=== PATIENT | female | born 1970 | race Caucasian/White ===

== ENCOUNTER 2017-02-28 13:05 | Observation (INO) ==
--- NOTE | 2017-02-28 13:39 | Emergency Department Note ---
Disposition Clinical Impression: Urinary tract infection, Diabetes mellitus, Uncontrolled hypertension, Obesity , Headache, Abnormal EKG Disposition: Admitted As Inpatient Condition: Good Instructions: Hypertension (ED) Referrals: Jessica Garces MD [Primary Care Provider] - [facility] [Outside] Forms: ED Satisfaction Letter General Adult HPI - General Chief complaint: ED Urogenital-Female Stated complaint: hypertension/ poss UTI Time Seen by Provider: 02/28/17 13:38 Source: patient Limitations: no limitations - History of Present Illness HPI Narrative: 47-year-old female reports emergency department complaining of urinary problems. She has a suprapubic catheter in situ. She reports her urine is smelly and she thinks she may have a UTI. She has had no significant flank pain no fever. She is diabetic. Her blood sugar has been between 180 and 220 per her report. There is no history of vomiting diarrhea she describes some suprapubic discomfort. There is no history of chest pain or shortness of breath. The patient is also concerned because her blood pressure readings at home have been elevated. She has a slight headache. There is no history of neck stiffness rash or fever unilateral arm weakness or numbness no slurred speech or confusion. No history of difficulty walking talking hearing seeing or speaking. The patient reports she has been septic before and she wants to be checked for UTI. Pain Scale: 4 - Related Data Home Medications Medication Instructions Recorded Confirmed Albuterol Sulfate [Albuterol 2 puff IH Q4HR PRN 04/25/15 02/28/17 Inhaler] Citalopram [CeleXA] 20 mg PO QPM 04/25/15 02/28/17 Furosemide [Lasix] 20 mg PO QAM 04/25/15 02/28/17 Levothyroxine [Synthroid] 175 mcg PO QAM 04/25/15 02/28/17 Potassium Chloride 10 meq PO QID 04/25/15 02/28/17 Amitriptyline [Elavil] 25 mg PO HS 02/07/16 02/28/17 CloNIDine Patch [Catapres-Tts] 0.2 mg TD QWEEK 02/07/16 02/28/17 Albuterol Neb [Proventil Neb] 2.5 mg IH TID PRN 02/28/17 02/28/17 Gabapentin [Neurontin] 100 mg PO HS 02/28/17 02/28/17 SitaGLIPtin [Januvia] 25 mg PO DAILY PRN 02/28/17 02/28/17 Triamcinolone Acet 0.1% CRM 1 appl TP BID 02/28/17 02/28/17 [Kenalog] Water for Irrigation (sterile) 1,000 ml IR AD 02/28/17 02/28/17 [Water for irrigation (sterile)] Allergies Allergy/AdvReac Type Severity Reaction Status Date / Time cephalexin [From Keflex] Allergy Hives Verified 02/16/17 22:21 omeprazole AdvReac Nausea Verified 02/16/17 22:21 All systems ED: reviewed and negative except as stated. 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 Absent: scleral icterus, conjunctival injection, miosis, mydriasis - ENT ENT exam: normal exam, normal oropharynx, mucous membranes moist, TM's normal bilaterally, normal external ear exam - Neck Neck exam: Present: normal inspection, full ROM, trachea midline. Absent: meningismus - Chest Chest inspection: Present: symmetric chest wall rise. Absent: tenderness - Respiratory Respiratory exam: Present: normal lung sounds bilaterally. Absent: respiratory distress, wheezes, stridor, accessory muscle use, prolonged expiratory phase - Cardiovascular Cardiovascular exam: Present: regular rate, normal rhythm, normal heart sounds - Abdominal Exam Abdominal exam: Present: soft, Non-Tender, normal bowel sounds, other ( Suprapubic catheter in place.). Absent: tenderness, distention, guarding, rebound, rigidity - Extremities Exam Extremities exam: Present: normal inspection, full ROM, normal capillary refill. Absent: tenderness, pedal edema, joint swelling, calf tenderness - Expanded Lower Extremity Exam Lower leg exam: Absent: Homans' sign Neurovascular/Tendon exam: Present: normal capillary refill. Absent: motor deficit, sensory deficit, tendon deficit, extremity cold to touch, pallor - Back Exam Back exam: Present: normal inspection, full ROM. Absent: tenderness, CVA tenderness (R), CVA tenderness (L), vertebral tenderness - Neurological Exam Neurological exam: Present: alert, oriented X3, CN II-XII intact. Absent: motor sensory deficit - Psychiatric Psychiatric exam: Present: normal affect, normal mood - Skin Skin exam: Present: warm, dry, intact, normal color. Absent: rash, cyanosis, diaphoresis, erythema, pallor, mottled Course Vital Signs Temperature 97.7 F 02/28/17 13:07 Pulse Rate 81 02/28/17 13:07 Respiratory Rate 16 02/28/17 13:07 Blood Pressure 161/101 02/28/17 13:07 O2 Sat by Pulse Oximetry 98 02/28/17 13:07 Temperature 97.7 F 02/28/17 13:07 Pulse Rate 78 02/28/17 17:00 Respiratory Rate 16 02/28/17 17:00 Blood Pressure 192/111 02/28/17 17:00 O2 Sat by Pulse Oximetry 98 02/28/17 17:00 Oxygen Delivery Oxygen Delivery Room Air Medical Decision Making - MDM Narrative Medical decision making narrative: The patient's urinalysis shows changes consistent with urinary tract infection. Cipro was given the ED. The patient's blood pressure was somewhat elevated, Percocet and clonidine were given in the ED, recheck blood pressure with a diastolic pressure remained significantly elevated up to 122. The patient takes antihypertensive medication at home and is currently wearing a clonidine patch. The patient does complain of a mild headache, is no history of rapid onset headache with rapid peak intensity. Her neurologic exam is benign. She reports he gets headaches when her blood pressure is elevated. We monitored the patient emergency department and did not seem to have significant improvement in her blood pressure. The patient is on Lasix, chlorthalidone, as well as clonidine. The patient does take amitriptyline which may interfere with clonidine's action. Based on her persistently elevated blood pressures already on 3 antihypertensive agents, with no response to additional clonidine, of note particularly her diastolic BP in the 120s, I thought it would be appropriate to admit the patient for further evaluation and management. The patient is currently stable. IV assess was established. Further antihypertensive therapy will be initiated. I discussed the case with the hospitalist on-call who has accepted the patient to their care. EKG sinus rhythm with LVH, no acute ST changes, CT head negative. Troponin is pending. The patient is not experiencing chest pain. - Lab Data Lab results reviewed: Yes I reviewed the patient's lab results. Result diagrams: 02/28/17 13:50 02/28/17 13:50 Lab Results 02/28/17 02/28/17 02/28/17 Range/Units 13:41 13:50 13:50 WBC 9.7 (4.3-11.1) K/mcL RBC 5.05 H (3.82-4.97) M/mcL Hgb 12.3 (11.5-15.4) g/dL Hct 40.1 (35.3-44.9) % MCV 79.4 L (83.0-100.0) fL MCH 24.4 L (28.0-33.3) pg MCHC 30.7 L (31.6-35.5) g/dL RDW 16.5 H (11.5-14.5) % Plt Count 357 (140-400) K/mcL MPV 10.8 (9.4-12.4) fL Immature Gran % 0.3 (0-4) % Seg Neutrophils % 64.1 % Lymphocytes % 27.0 % Monocytes % 5.8 % Eosinophils % 2.3 % Basophils % 0.5 % Neutrophils # 6.2 (1.6-8.9) K/mcL Lymphocytes # 2.6 (0.6-4.6) K/mcL Monocytes # 0.6 (0.0-1.3) K/mcL Eosinophils # 0.2 (0.0-0.6) K/mcL Basophils # 0.1 (0.0-0.2) K/mcL Sodium 140 (136-145) mEq/L Potassium 3.9 (3.5-4.5) mEq/L Chloride 110 H (98-109) mEq/L Carbon Dioxide 21 (19-29) mEq/L BUN 18 (7-20) mg/dL Creatinine 0.78 (0.57-1.11) mg/dL Est GFR ( Amer) > 60 (> 60) Est GFR (Non-Af Amer) > 60 (> 60) BUN/Creatinine Ratio 23 (6-26) Glucose 131 H (70-99) mg/dL Calculated Osmolality 294 (280-300) Lactic Acid (0.5-2.2) mmol/L Calcium 9.7 (8.6-10.8) mg/dL Total Bilirubin 0.3 (0.2-1.2) mg/dL Direct Bilirubin 0.1 (0.0-0.5) mg/dL Indirect Bilirubin 0.2 (0.0-1.2) mg/dL AST 18 (5-34) Units/L ALT 17 (0-55) Units/L Alkaline Phosphatase 136 H (38-126) Units/L C-Reactive Protein 25 H (Less than 5) mg/L Serum Total Protein 8.6 H (6.0-8.3) g/dL Albumin 3.4 L (3.5-5.0) g/dL Globulin 5.2 H (2.4-3.5) g/dL Albumin/Globulin Ratio 0.7 L (1.1-2.2) Urine Color Yellow (Yellow) Urine Clarity Cloudy A (Clear) Urine pH 6.5 (5.0-8.0) pH Units Ur Specific [place] 1.016 (1.010-1.025) Urine Protein >=300 H (Neg-Trace) mg/dL Urine Glucose (UA) Normal (Normal) mg/dL Urine Ketones Negative (Negative) mg/dL Urine Blood Large H (Negative) Urine Nitrite Negative (Negative) Urine Bilirubin Negative (Negative) Urine Urobilinogen Normal (Normal) mg/dL Ur Leukocyte Esterase Moderate H (Negative) Urine Microscopic RBC TNTC H (0-3) per hpf Urine Microscopic WBC 50-100 H (0-3) per hpf Ur Squamous Epith Cells Many H (None-Few) per lpf Urine Bacteria Few (None-Few) per hpf Hyaline Casts None Seen (None-Few) per lpf Ur Culture Indicated? YES A (NO) 02/28/17 Range/Units 13:50 WBC (4.3-11.1) K/mcL RBC (3.82-4.97) M/mcL Hgb (11.5-15.4) g/dL Hct (35.3-44.9) % MCV (83.0-100.0) fL MCH (28.0-33.3) pg MCHC (31.6-35.5) g/dL RDW (11.5-14.5) % Plt Count (140-400) K/mcL MPV (9.4-12.4) fL Immature Gran % (0-4) % Seg Neutrophils % % Lymphocytes % % Monocytes % % Eosinophils % % Basophils % % Neutrophils # (1.6-8.9) K/mcL Lymphocytes # (0.6-4.6) K/mcL Monocytes # (0.0-1.3) K/mcL Eosinophils # (0.0-0.6) K/mcL Basophils # (0.0-0.2) K/mcL Sodium (136-145) mEq/L Potassium (3.5-4.5) mEq/L Chloride (98-109) mEq/L Carbon Dioxide (19-29) mEq/L BUN (7-20) mg/dL Creatinine (0.57-1.11) mg/dL Est GFR ( Amer) (> 60) Est GFR (Non-Af Amer) (> 60) BUN/Creatinine Ratio (6-26) Glucose (70-99) mg/dL Calculated Osmolality (280-300) Lactic Acid 1.4 (0.5-2.2) mmol/L Calcium (8.6-10.8) mg/dL Total Bilirubin (0.2-1.2) mg/dL Direct Bilirubin (0.0-0.5) mg/dL Indirect Bilirubin (0.0-1.2) mg/dL AST (5-34) Units/L ALT (0-55) Units/L Alkaline Phosphatase (38-126) Units/L C-Reactive Protein (Less than 5) mg/L Serum Total Protein (6.0-8.3) g/dL Albumin (3.5-5.0) g/dL Globulin (2.4-3.5) g/dL Albumin/Globulin Ratio (1.1-2.2) Urine Color (Yellow) Urine Clarity (Clear) Urine pH (5.0-8.0) pH Units Ur Specific [place] (1.010-1.025) Urine Protein (Neg-Trace) mg/dL Urine Glucose (UA) (Normal) mg/dL Urine Ketones (Negative) mg/dL Urine Blood (Negative) Urine Nitrite (Negative) Urine Bilirubin (Negative) Urine Urobilinogen (Normal) mg/dL Ur Leukocyte Esterase (Negative) Urine Microscopic RBC (0-3) per hpf Urine Microscopic WBC (0-3) per hpf Ur Squamous Epith Cells (None-Few) per lpf Urine Bacteria (None-Few) per hpf Hyaline Casts (None-Few) per lpf Ur Culture Indicated? (NO)
[2017-02-28 13:50] LABS: Bilirubin,Urine Negative (Negative); Blood,Urine Large (Negative); Clarity,Urine Cloudy (Clear); Color,Urine Yellow (Yellow); Glucose,Urine (UA) Normal (Normal); Ketones,Urine Negative (Negative); Leukocyte Esterase,Urine Moderate (Negative); Nitrite,Urine Negative (Negative); PH,Urine 6.5 pH Units (5.0-8.0); Protein,Urine >=300 mg/dL (Neg-Trace); Specific Gravity,Urine 1.016 (1.010-1.025); Urobilinogen,Urine Normal (Normal)
[2017-02-28 13:52] LABS: Bacteria,Urine Few per hpf (None-Few); Hyaline Casts,Urine None Seen per lpf (None-Few); RBC,Urine TNTC per hpf (0-3); Squamous Epithelial Cell,Urine Many per lpf (None-Few); WBC,Urine 50-100 per hpf (0-3)
[2017-02-28 13:59] LABS: Basophils # 0.1 K/mcL (0.0-0.2); Basophils % 0.5 %; Eosinophils # 0.2 K/mcL (0.0-0.6); Eosinophils % 2.3 %; Hematocrit 40.1 % (35.3-44.9); Hemoglobin 12.3 g/dL (11.5-15.4); Immature Granulocytes % 0.3 % (0-4); Lymphocytes # 2.6 K/mcL (0.6-4.6); Mean Corpuscular HGB Conc 30.7 g/dL (31.6-35.5); Mean Corpuscular Hemoglobin 24.4 pg (28.0-33.3); Mean Corpuscular Volume 79.4 fL (83.0-100.0); Mean Platelet Volume 10.8 fL (9.4-12.4); Monocytes # 0.6 K/mcL (0.0-1.3); Monocytes % 5.8 %; Neutrophils # 6.2 K/mcL (1.6-8.9); Platelet Count 357 K/mcL (140-400); Red Blood Count 5.05 M/mcL (3.82-4.97); Red Cell Distribution Width 16.5 % (11.5-14.5); Segmented Neutrophils % 64.1 %
[2017-02-28 14:13] LABS: Alanine Aminotransferase 17 Units/L (0-55); Albumin 3.4 g/dL (3.5-5.0); Albumin/Globulin Ratio 0.7 (1.1-2.2); Alkaline Phosphatase 136 Units/L (38-126); Aspartate Amino Transferase 18 Units/L (5-34); BUN/Creatinine Ratio 23 (6-26); Bilirubin,Direct 0.1 mg/dL (0.0-0.5); Bilirubin,Indirect 0.2 mg/dL (0.0-1.2); Bilirubin,Total 0.3 mg/dL (0.2-1.2); Blood Urea Nitrogen 18 mg/dL (7-20); Calcium 9.7 mg/dL (8.6-10.8); Carbon Dioxide 21 mEq/L (19-29); Chloride 110 mEq/L (98-109); Globulin 5.2 g/dL (2.4-3.5); Glucose 131 mg/dL (70-99); Osmolality,Calculated 294 (280-300); Potassium 3.9 mEq/L (3.5-4.5); Sodium 140 mEq/L (136-145); Total Protein 8.6 g/dL (6.0-8.3); eGFR For African Americans > 60 (> 60); eGFR For Non-African Americans > 60 (> 60)
[2017-02-28 14:49] LABS: C-Reactive Protein 25 mg/L (Less than 5)
[2017-02-28] MEDS ORDERED: *HR* OxyCODONE/APAP 5/325 TABLET PO ONE (15:12)
[2017-02-28] MEDS ORDERED: cloNIDine HCl 0.1 MG TABLET PO ONE (15:13)
[2017-02-28] MEDS ORDERED: *HR* SitaGLIPtin 25 MG TABLET PO PRN (20:27)
[2017-02-28] MEDS ORDERED: Ketorolac 30 MG/ML VIAL IVP PRN (20:29)
[2017-02-28] MEDS ORDERED: Acetaminophen 325 MG TABLET PO PRN (20:29)
[2017-02-28] MEDS ORDERED: *HR* Morphine 2 MG/ML SYRINGE IVP PRN (20:29)
[2017-02-28] MEDS ORDERED: Ondansetron 4 MG/2 ML VIAL IVP PRN (20:29)
[2017-02-28] MEDS ORDERED: Naloxone 0.4 MG/ML INJ IVP PRN (20:29)
[2017-02-28] MEDS ORDERED: CloNIDine Patch 0.2 MG PATCH (WEEKLY) TD SCH (20:30)
--- NOTE | 2017-02-28 20:34 | Internal Med History&Physical ---
Date of Encounter: 02/28/17 Time of Encounter: 20:32 Assessment and Plan (1) UTI (urinary tract infection) due to urinary indwelling catheter Current visit: No Status: Acute Discontinue ciprofloxacin Start Merrem as the patient has allergy to cephalexin X De-escalate antibiotic therapy per culture Famotidine for GI prophylaxis and subcutaneous heparin for DVT prophylaxis. Patient will be admitted for observation. Full code. Time spent on this admission 40 minutes Qualifiers: Indwelling urinary catheter type: indwelling urethral catheter Encounter type: initial encounter Qualified Code(s): T83.511A - Infection and inflammatory reaction due to indwelling urethral catheter, initial encounter; N39.0 - Urinary tract infection, site not specified (2) Suprapubic catheter dysfunction Current visit: No Status: Acute Call urology consult as the catheter is leaking and needs to be changed Qualifiers: Encounter type: initial encounter Qualified Code(s): T83.010A - Breakdown ( mechanical) of cystostomy catheter, initial encounter (3) Diabetes mellitus Current visit: Yes Status: Chronic Use insulin sliding scale Qualifiers: Diabetes mellitus type: type 2 Diabetes mellitus complication status: without complication Diabetes mellitus terminal manager insulin use: without terminal manager use Qualified Code(s): E11.9 - Type 2 diabetes mellitus without complications (4) Uncontrolled hypertension Current visit: Yes Status: Acute Accelerated hypertension Continue clonidine patch, Lasix Add hydralazine IV as needed (5) Headache Current visit: Yes Status: Acute Qualifiers: Headache type: unspecified Headache chronicity pattern: unspecified pattern Qualified Code(s): R51 - Headache Internal Medicine - H&P: HPI Chief complaint: Dysuria, foul-smelling urine Admitted From: Emergency Dept History of present illness: Ms. Chapa is a 47 year old female with a past medical history of diabetes type 2 not insulin-dependent, hypertension, spina bifida and neurogenic bladder, who has a suprapubic catheter came to the emergency room as the catheter was changed recently and only started leaking but she mentions that 2 days ago her urine started smelling really bad. Her UA shows 100 white blood cells and few bacteria was started on ciprofloxacin at the emergency room but her prior culture shows resistance to ciprofloxacin and she is allergic to cephalexin. Patient's blood pressure has been extremely elevated at 192/111, her diastolic blood pressure was 122 at some point. Glucose is 220. CT scan of the head was performed showing no acute abnormalities. The patient is complaining of abdominal pain 5 out of 10 in intensity and some back pain. Denies any fevers Past Med Surg Social Fam HX - Past Medical History Medical history: diabetes (Not insulin-dependent), hyperlipidemia, hypertension , thyroid disease (Hypothyroidism), other (Neuropathy, anxiety, spina bifida, neurogenic bladder, nephrolithiasis, seizures up until the age of 16) Psychiatric history: anxiety, depression - Past Surgical History Surgical History: orthopedic, other, ureteral stent, other (Cholecystectomy, suprapubic catheter placement, stress test was unremarkable on December of this year. Tubal ligation, tonsillectomy, revision of stoma) - Social History Smoking Status: Never smoker Smokeless Tobacco Status: No Alcohol use: rarely Drug use: none - Family History Mother Living Status: Still Living Hx Family Cardiac Disorders: Yes (Coronary artery disease) Hx Family Endocrine Disorder: Yes (Hypothyroidism) Hx Family Neuromuscular Disorders: Yes (Alzeihmers, dementia) Hx Family Neurologic Disorders: Yes (Dementia) Father Family Member Ethnicity: Non- Living Status: Hx Family Cardiac Disorders: Yes (Heart Failure) Hx Family Respiratory Disorders: Yes (Asthma, COPD) Hx Family Endocrine Disorder: Yes (DM) Brother Hx Family Cardiac Disorders: Yes (Hypertension and hyperlipidemia) Hx Family Endocrine Disorder: Yes (Diabetes mellitus) Hx Family Neurologic Disorders: Yes (Spina bifida) - Additional Family History Additional family history: Brother with hypertension and testicular cancer. Father with hypertension CAD and CHF, mother with CVA diabetes and CAD Internal Medicine - H&P: Meds Albuterol Sulfate [Albuterol Inhaler] 2 puff IH Q4HR PRN 04/25/15 [History] Citalopram [CeleXA] 20 mg PO QPM 04/25/15 [History] Furosemide [Lasix] 20 mg PO QAM 04/25/15 [History] Levothyroxine [Synthroid] 175 mcg PO QAM 04/25/15 [History] Potassium Chloride 10 meq PO QID 04/25/15 [History] Amitriptyline [Elavil] 25 mg PO HS 02/07/16 [History] CloNIDine Patch [Catapres-Tts] 0.2 mg TD QWEEK 02/07/16 [History] Albuterol Neb [Proventil Neb] 2.5 mg IH TID PRN 02/28/17 [History] Gabapentin [Neurontin] 100 mg PO HS 02/28/17 [History] SitaGLIPtin [Januvia] 25 mg PO DAILY PRN 02/28/17 [History] Triamcinolone Acet 0.1% CRM [Kenalog] 1 appl TP BID 02/28/17 [History] Water for Irrigation (sterile) [Water for irrigation (sterile)] 1,000 ml IR AD 02/28/17 [History] Allergies cephalexin [From Keflex] Allergy (Verified 02/16/17 22:21) Hives omeprazole Adverse Reaction (Verified 02/16/17 22:21) Nausea All Systems PM: A 10-system review of systems was performed and is negative for pertinent findings except as documented above in the HPI. Review of systems: Feels weak, other systems out of the ten reviewed were negative - Constitutional Vitals: Temp Pulse Resp BP Pulse Ox 97.7 F 77 16 182/117 99 02/28/17 13:07 02/28/17 18:30 02/28/17 19:00 02/28/17 19:00 02/28/17 18:30 General appearance: Present: A&O X 3, morbidly obese - Head Head exam: Present: atraumatic, normocephalic - Eye Eye exam: Present: PERRL, conjuntiva pink, sclera anicteric Pupils: Present: PERRL - Neck Neck exam general surgery: Present: supple, trachea midline. Absent: lymphadenopathy - Respiratory Respiratory exam: Present: decreased breath sounds, CTAB. Absent: accessory muscle use, rales, rhonchi, wheezes - Cardiovascular Cardiovascular exam: Present: RRR, +S1, +S2. Absent: diastolic murmur, gallop, rubs, systolic murmur - GI/Abdominal GI/Abdominal exam: Present: distended (Suprapubic catheter in place, very foul- smelling urine), normal bowel sounds, soft, no peritoneal signs. Absent: tenderness - Extremities Exam Extremities exam: Present: warm, radial pulses palpable and symetrical. Absent : calf tenderness, cyanotic, pedal edema - Neurological Exam Neurological exam: Present: CN II-XII intact, oriented X3, no focal deficits. Absent: pronater drift, facial droop, speech deficit - Skin Skin exam: Present: dry, intact Internal Med - H&P Results - Labs CBC & Chem 7: 02/28/17 13:50 02/28/17 13:50
[2017-02-28] MEDS ORDERED: D5% in Water 1,000 ML IVC PRN (20:38)
[2017-02-28] MEDS ORDERED: Dextrose Gel 15 GM PO PRN ×2 (20:38)
[2017-02-28] MEDS ORDERED: *HR* Dextrose 50 % in Water (Syg) 50 ML SYRINGE IVP PRN (20:38)
[2017-02-28] MEDS: Famotidine 20 MG TABLET PO SCH (22:30)
[2017-02-28] MEDS: Gabapentin 100 MG CAPSULE PO SCH (22:30)
[2017-02-28] MEDS: Meropenem 500 MG in 0.9 % Sodium Chloride Mini Bag 100 ML IVPB SCH (22:31)
[2017-02-28] MEDS: Insulin LISPRO 300 UNITS/3 ML VIAL SQ SCH (22:49)
[2017-03-01] MEDS: Meropenem 500 MG in 0.9 % Sodium Chloride Mini Bag 100 ML IVPB SCH ×4 (00:13→23:51)
[2017-03-01 04:39] LABS: BUN/Creatinine Ratio 20 (6-26); Blood Urea Nitrogen 18 mg/dL (7-20); Calcium 9.2 mg/dL (8.6-10.8); Carbon Dioxide 20 mEq/L (19-29); Chloride 108 mEq/L (98-109); Glucose 140 mg/dL (70-99); Osmolality,Calculated 290 (280-300); Potassium 3.9 mEq/L (3.5-4.5); Sodium 138 mEq/L (136-145); eGFR For African Americans > 60 (> 60); eGFR For Non-African Americans > 60 (> 60)
[2017-03-01 04:40] LABS: Hematocrit 38.8 % (35.3-44.9); Hemoglobin 12.3 g/dL (11.5-15.4); Immature Platelets 6.7 % (1.1-6.1); Mean Corpuscular HGB Conc 31.7 g/dL (31.6-35.5); Mean Corpuscular Hemoglobin 25.1 pg (28.0-33.3); Mean Corpuscular Volume 79.2 fL (83.0-100.0); Mean Platelet Volume 10.9 fL (9.4-12.4); Red Blood Count 4.9 M/mcL (3.82-4.97); Red Cell Distribution Width 16.7 % (11.5-14.5)
[2017-03-01] MEDS: WATER IR SCH ×2 (05:40→23:55)
[2017-03-01] MEDS: [UNRECOGNIZED DRUG - OTHER] IR SCH ×2 (05:40→23:55)
[2017-03-01] MEDS: *HR* Heparin 5,000 UNIT/ML VIAL SQ SCH ×2 (05:46→17:44)
[2017-03-01] MEDS ORDERED: 0.9 % Sodium Chloride 1,000 ML IVC SCH ×2 (06:15→10:56)
[2017-03-01] MEDS: Insulin LISPRO 300 UNITS/3 ML VIAL SQ SCH ×4 (08:00→20:41)
[2017-03-01] MEDS: Famotidine 20 MG TABLET PO SCH ×2 (08:41→20:42)
[2017-03-01] MEDS ORDERED: Furosemide 20 MG TABLET PO SCH (09:00)
--- NOTE | 2017-03-01 09:46 | Urology Procedure Note ---
Date of Encounter: 03/01/17 Time of Encounter: 09:44 Procedures:Urology - Suprapubic Catheter Replacement Consent obtained: verbal consent Reason for Suprapubic Catheter: not draining well Estimated Amount of Urine (mLs): 600 (with debris) Skin cleansed in sterile fashion: Yes Suprapubic Type and Size: 24 silastic Amount of Urine Returned: 600 Urine Appearance: Clear, Sediment Patient tolerated procedure: well Additional comments: I suspect the original suprapubic catheter was not draining well. I replaced it with a Simplastic 24 [place] hematuria catheter. Immediate return of 600 mL of urine with debris. Retained urine may have been the cause of her high blood pressure. Okay to follow with urology as scheduled.
--- NOTE | 2017-03-01 14:35 | Internal Med Progress Note ---
Date of Encounter: 03/01/17 Time of Encounter: 10:00 - Assessment and plan (1) UTI (urinary tract infection) due to urinary indwelling catheter Current Visit: Yes Status: Acute Assessment and plan: Urine culture with gram negative serene. She is currently on Merrem. Her previous culture was E. coli. Awaiting final sensitivities to deescalate abx. This CAUTI was present on admission. Qualifiers: Indwelling urinary catheter type: indwelling urethral catheter Encounter type: subsequent encounter Qualified Code(s): T83.511D - Infection and inflammatory reaction due to indwelling urethral catheter, subsequent encounter ; N39.0 - Urinary tract infection, site not specified (2) Uncontrolled hypertension Current Visit: Yes Status: Chronic Assessment and plan: Blood pressure better controlled at this time. (3) Diabetes mellitus Current Visit: Yes Status: Chronic Assessment and plan: Continue to monitor and treat as needed. Qualifiers: Diabetes mellitus type: type 2 Diabetes mellitus complication status: without complication Diabetes mellitus ad terminal makeup operator insulin use: without intermediate use Qualified Code(s): E11.9 - Type 2 diabetes mellitus without complications (4) Hypothyroid Current Visit: No Status: Chronic Assessment and plan: Continue medication. Qualifiers: Hypothyroidism type: unspecified Qualified Code(s): E03.9 - Hypothyroidism , unspecified (5) Obesity Current Visit: Yes Status: Chronic Assessment and plan: Supportive care. Qualifiers: Obesity type: due to excess calories Obesity severity: morbid Qualified Code(s): E66.01 - Morbid (severe) obesity due to excess calories (6) Spina bifida Current Visit: Yes Status: Chronic Assessment and plan: Supportive care. Qualifiers: Spinal region: unspecified Presence of hydrocephalus: unspecified hydrocephalus presence Qualified Code(s): Q05.9 - Spina bifida, unspecified (7) Neurogenic bladder Current Visit: Yes Status: Chronic Assessment and plan: Has suprapubic catheter - replaced today. - Subjective Interval history: Ms. Chapa is currently in observation for acute CAUTI. She is moderate to high risk due to potential for worsening infectious issues. Ms. Chapa is beginning to feel a little better. No cough. Still some abd discomfort. Catheter changed this AM. No fever. - Constitutional Vitals: Temp Pulse Resp BP Pulse Ox 99.2 F 90 16 124/76 95 03/01/17 11:20 03/01/17 11:20 03/01/17 11:20 03/01/17 11:20 03/01/17 11:20 General appearance: Present: A&O X 3, morbidly obese, pleasant - Head Head exam: Present: normocephalic - Eye Eye exam: Present: conjuntiva pink - ENT ENT exam: Present: mucous membranes moist - Respiratory Respiratory exam: Present: decreased breath sounds, CTAB - Cardiovascular Cardiovascular exam: Present: RRR. Absent: tachycardia - GI/Abdominal GI/Abdominal exam: Present: soft. Absent: mass, tenderness - Extremities Exam Extremities exam: Present: warm. Absent: tenderness - Neurological Exam Neurological exam: Present: alert, oriented X3 - Psychiatric Psychiatric exam: Present: normal affect, normal mood Internal Medicine: Result - Labs CBC & Chem 7: 03/01/17 04:12 03/01/17 04:12 Labs: Short CBC 03/01/17 Range/Units 04:12 WBC 18.2 H D (4.3-11.1) K/mcL Hgb 12.3 (11.5-15.4) g/dL Hct 38.8 (35.3-44.9) % Plt Count 338 (140-400) K/mcL [facility] 03/01/17 04:12 Sodium 138 Potassium 3.9 Chloride 108 Carbon Dioxide 20 BUN 18 Creatinine 0.89 Glucose 140 H Calcium 9.2 Consult Discharge Plan - Plan Referrals: Jessica Garces MD [Primary Care Provider] -
[2017-03-01] MEDS: 0.9 % Sodium Chloride 1,000 ML IVC SCH (15:56)
[2017-03-01] MEDS: Gabapentin 100 MG CAPSULE PO SCH (20:42)
[2017-03-02 04:33] LABS: Hematocrit 36.1 % (35.3-44.9); Hemoglobin 11.1 g/dL (11.5-15.4); Mean Corpuscular HGB Conc 30.7 g/dL (31.6-35.5); Mean Corpuscular Hemoglobin 24.8 pg (28.0-33.3); Mean Corpuscular Volume 80.8 fL (83.0-100.0); Mean Platelet Volume 11.1 fL (9.4-12.4); Platelet Count 274 K/mcL (140-400); Red Blood Count 4.47 M/mcL (3.82-4.97); Red Cell Distribution Width 16.8 % (11.5-14.5)
[2017-03-02 04:49] LABS: BUN/Creatinine Ratio 19 (6-26); Blood Urea Nitrogen 15 mg/dL (7-20); Calcium 8.8 mg/dL (8.6-10.8); Carbon Dioxide 21 mEq/L (19-29); Chloride 108 mEq/L (98-109); Glucose 110 mg/dL (70-99); Magnesium 1.9 mg/dL (1.6-2.6); Osmolality,Calculated 287 (280-300); Potassium 3.8 mEq/L (3.5-4.5); Sodium 138 mEq/L (136-145); eGFR For African Americans > 60 (> 60); eGFR For Non-African Americans > 60 (> 60)
[2017-03-02] MEDS: *HR* Heparin 5,000 UNIT/ML VIAL SQ SCH ×2 (04:58→17:53)
[2017-03-02] MEDS: 0.9 % Sodium Chloride 1,000 ML IVC SCH (04:58)
[2017-03-02] MEDS: Insulin LISPRO 300 UNITS/3 ML VIAL SQ SCH ×4 (09:23→21:02)
[2017-03-02] MEDS: Famotidine 20 MG TABLET PO SCH ×2 (09:30→21:03)
[2017-03-02] MEDS: Meropenem 500 MG in 0.9 % Sodium Chloride Mini Bag 100 ML IVPB SCH ×3 (09:31→23:56)
--- NOTE | 2017-03-02 13:38 | Internal Med Progress Note ---
Date of Encounter: 03/02/17 Time of Encounter: 11:00 - Assessment and plan (1) UTI (urinary tract infection) due to urinary indwelling catheter Current Visit: Yes Status: Acute Assessment and plan: Urine culture with E. coli and Morganella. She has allergy to cephalosporin. Currently on Merrem and improving. Will change to Invanz in morning. Will most likely need to go home on IV abx for 5 -7 days. Qualifiers: Indwelling urinary catheter type: indwelling urethral catheter Encounter type: subsequent encounter Qualified Code(s): T83.511D - Infection and inflammatory reaction due to indwelling urethral catheter, subsequent encounter ; N39.0 - Urinary tract infection, site not specified (2) Uncontrolled hypertension Current Visit: Yes Status: Chronic Assessment and plan: Stable. Monitor on current meds. (3) Diabetes mellitus Current Visit: Yes Status: Chronic Assessment and plan: Continue to monitor and treat as needed. Qualifiers: Diabetes mellitus type: type 2 Diabetes mellitus complication status: without complication Diabetes mellitus senior care insulin use: without director long term care use Qualified Code(s): E11.9 - Type 2 diabetes mellitus without complications (4) Hypothyroid Current Visit: No Status: Chronic Assessment and plan: Continue medication. Qualifiers: Hypothyroidism type: unspecified Qualified Code(s): E03.9 - Hypothyroidism , unspecified (5) Obesity Current Visit: Yes Status: Chronic Assessment and plan: Supportive care. Qualifiers: Obesity type: due to excess calories Obesity severity: morbid Qualified Code(s): E66.01 - Morbid (severe) obesity due to excess calories (6) Spina bifida Current Visit: Yes Status: Chronic Assessment and plan: Supportive care. Qualifiers: Spinal region: unspecified Presence of hydrocephalus: unspecified hydrocephalus presence Qualified Code(s): Q05.9 - Spina bifida, unspecified (7) Neurogenic bladder Current Visit: Yes Status: Chronic Assessment and plan: Has suprapubic catheter - replaced this admission. - Subjective Interval history: Ms. Chapa is currently in observation for acute CAUTI. She is moderate to high risk due to potential for worsening infectious issues. Ms. Chapa feels somewhat better today. Final culture is pending. No fever. BP is beginning to go back up now. No GI symptoms. - Constitutional Vitals: Temp Pulse Resp BP Pulse Ox 98.2 F 86 16 155/91 98 03/02/17 11:08 03/02/17 11:08 03/02/17 11:08 03/02/17 11:08 03/02/17 11:08 General appearance: Present: A&O X 3, pleasant, answers questions appropriately - Head Head exam: Present: normocephalic - Eye Eye exam: Present: conjuntiva pink - ENT ENT exam: Present: mucous membranes moist - Respiratory Respiratory exam: Present: decreased breath sounds, CTAB - Cardiovascular Cardiovascular exam: Present: RRR. Absent: tachycardia - GI/Abdominal GI/Abdominal exam: Present: soft. Absent: tenderness - Extremities Exam Extremities exam: Present: warm. Absent: tenderness - Neurological Exam Neurological exam: Present: alert, oriented X3 - Psychiatric Psychiatric exam: Present: normal affect, normal mood Internal Medicine: Result - Labs CBC & Chem 7: 03/02/17 03:42 03/02/17 03:42 Labs: Short CBC 03/02/17 Range/Units 03:42 WBC 11.6 H (4.3-11.1) K/mcL Hgb 11.1 L (11.5-15.4) g/dL Hct 36.1 (35.3-44.9) % Plt Count 274 (140-400) K/mcL BMP 03/02/17 03:42 Sodium 138 Potassium 3.8 Chloride 108 Carbon Dioxide 21 BUN 15 Creatinine 0.80 Glucose 110 H Calcium 8.8 Consult Discharge Plan - Plan Referrals: Jessica Garces MD [Primary Care Provider] -
[2017-03-02] MEDS: amLODIPine 5 MG TABLET PO SCH (17:47)
[2017-03-02] MEDS: Gabapentin 100 MG CAPSULE PO SCH (21:03)
[2017-03-02] MEDS: WATER IR SCH (21:05)
[2017-03-02] MEDS: [UNRECOGNIZED DRUG - OTHER] IR SCH (21:05)
[2017-03-03] MEDS: [UNRECOGNIZED DRUG - OTHER] IR SCH (00:02)
[2017-03-03] MEDS: WATER IR SCH (00:02)
[2017-03-03 03:06] LABS: Hematocrit 36.6 % (35.3-44.9); Hemoglobin 11.3 g/dL (11.5-15.4); Immature Platelets 4.8 % (1.1-6.1); Mean Corpuscular HGB Conc 30.9 g/dL (31.6-35.5); Mean Corpuscular Hemoglobin 24.8 pg (28.0-33.3); Mean Corpuscular Volume 80.3 fL (83.0-100.0); Mean Platelet Volume 10.5 fL (9.4-12.4); Red Blood Count 4.56 M/mcL (3.82-4.97); Red Cell Distribution Width 16.5 % (11.5-14.5)
[2017-03-03 03:18] LABS: BUN/Creatinine Ratio 16 (6-26); Blood Urea Nitrogen 12 mg/dL (7-20); Calcium 9.1 mg/dL (8.6-10.8); Carbon Dioxide 22 mEq/L (19-29); Chloride 107 mEq/L (98-109); Glucose 101 mg/dL (70-99); Osmolality,Calculated 284 (280-300); Sodium 137 mEq/L (136-145); eGFR For African Americans > 60 (> 60); eGFR For Non-African Americans > 60 (> 60)
[2017-03-03] MEDS: *HR* Heparin 5,000 UNIT/ML VIAL SQ SCH (05:26)
--- NOTE | 2017-03-03 07:05 | Electrocardiograph Report ---
[place] [id number] Test Date: 2017-02-28 Pat Name: Ann Chapa Department: 105 Room: 2NE17 Gender: F Breakfast Server: : 1970 Requested By: Hamzah Vee Order Number: [id number] Reading MD: Rudi Joseph MD Measurements Intervals [place] Rate: 80 P: 34 [place]: 151 QRS: -10 QRSD: 93 T: 5 QT: 362 QTc: 398 Interpretive Statements SINUS RHYTHM MINIMAL VOLTAGE CRITERIA FOR LVH Electronically Signed On 03-03-2017 7:03:34 EDT by Rudi Joseph MD
[2017-03-03] MEDS: Insulin LISPRO 300 UNITS/3 ML VIAL SQ SCH ×2 (08:11→12:20)
[2017-03-03] MEDS: Famotidine 20 MG TABLET PO SCH (08:28)
[2017-03-03] MEDS: amLODIPine 5 MG TABLET PO SCH (08:28)
[2017-03-03] MEDS ORDERED: Ertapenem 1,000 MG in 0.9 % Sodium Chloride Mini Bag 100 ML IVPB SCH (09:00)
[2017-03-03 11:13] VITALS: BP 130/88
--- NOTE | 2017-03-03 12:51 | Discharge Summary ---
<Cuba Durbin - Last Filed: 03/03/17 12:47> Date of Encounter: 03/03/17 Time of Encounter: 12:47 - Discharge Diagnosis (1) UTI (urinary tract infection) due to urinary indwelling catheter Priority: Primary Status: Acute Qualifiers: Indwelling urinary catheter type: indwelling urethral catheter Encounter type: subsequent encounter Qualified Code(s): T83.511D - Infection and inflammatory reaction due to indwelling urethral catheter, subsequent encounter ; N39.0 - Urinary tract infection, site not specified (2) Morbid obesity Priority: Secondary Status: Acute Qualifiers: Qualified Code(s): E66.01 - Morbid (severe) obesity due to excess calories (3) Hypothyroid Priority: Secondary Status: Chronic Qualifiers: Hypothyroidism type: unspecified Qualified Code(s): E03.9 - Hypothyroidism , unspecified (4) Diabetes mellitus Priority: Secondary Status: Chronic Qualifiers: Diabetes mellitus type: type 2 Diabetes mellitus complication status: without complication Diabetes mellitus residential insulin use: without residential use Qualified Code(s): E11.9 - Type 2 diabetes mellitus without complications (5) Uncontrolled hypertension Priority: Secondary Status: Chronic (6) Spina bifida Priority: Secondary Status: Chronic Qualifiers: Spinal region: unspecified Presence of hydrocephalus: unspecified hydrocephalus presence Qualified Code(s): Q05.9 - Spina bifida, unspecified (7) Neurogenic bladder Priority: Secondary Status: Chronic - Discharge Medications Prescriptions: amLODIPine [Norvasc] 5 mg PO DAILY #30 tablet Ertapenem [INVanz] 1,000 mg IVPB DAILY 7 Days Home Medications: Albuterol Sulfate [Albuterol Inhaler] 2 puff IH Q4HR PRN 04/25/15 [History] Citalopram [CeleXA] 20 mg PO QPM 04/25/15 [History] Furosemide [Lasix] 20 mg PO QAM 04/25/15 [History] Levothyroxine [Synthroid] 175 mcg PO QAM 04/25/15 [History] Potassium Chloride 10 meq PO QID 04/25/15 [History] Amitriptyline [Elavil] 25 mg PO HS 02/07/16 [History] CloNIDine Patch [Catapres-Tts] 0.2 mg TD QWEEK 02/07/16 [History] Albuterol Neb [Proventil Neb] 2.5 mg IH TID PRN 02/28/17 [History] Gabapentin [Neurontin] 100 mg PO HS 02/28/17 [History] SitaGLIPtin [Januvia] 25 mg PO DAILY PRN 02/28/17 [History] Triamcinolone Acet 0.1% CRM [Kenalog] 1 appl TP BID 02/28/17 [History] Water for Irrigation (sterile) [Water for irrigation (sterile)] 1,000 ml IR AD 02/28/17 [History] Ertapenem [INVanz] 1,000 mg IVPB DAILY 7 Days 03/03/17 [Rx] amLODIPine [Norvasc] 5 mg PO DAILY #30 tablet 03/03/17 [Rx] Allergies/Adverse Reactions: Allergies cephalexin [From Keflex] Allergy (Verified 02/16/17 22:21) Hives omeprazole Adverse Reaction (Verified 02/16/17 22:21) Nausea Date of admission: 02/28/17 18:36 Primary care physician: Jessica Garces Consults: 02/28/17 20:24 Consult to Urology [CONS] Routine Consulting Provider: Urology [facility]hell Reason for Consult: change suprapubic catheter Call Completed: No 03/03/17 08:00 Consult to Station Engineer [CONS] Routine Reason for SW Consult: Probable home IV abx Discharging clinician: Cuba Durbin Anticipated date of discharge: 03/03/17 - Patient Status Disposition: Home Health Service Condition: Good Functional capacity at discharge: bed bound Overall status at discharge: patient is progressing back to baseline - Discharge Instructions Instructions: Amlodipine (By mouth), Ertapenem (Injection), Urinary Tract Infection in Women (DC) Follow Up With: Jessica Garces MD [Primary Care Provider] - (f/u in a week for hospital d /c f/u) John Hyman MD [Partnered Physician] - (F/u as scheduled for next appointment) - Diet and Activity Activity: resume usual activities as tolerated Diet: diabetic diet Hospital course: Ms. Chapa is a 47 year old female with a history of diabetes type 2 not insulin- dependent, hypertension, spina bifida and neurogenic bladder, who has a suprapubic catheter came to the emergency room with c/o urine started smelling really bad, patient's blood pressure was elevated at 192/111, therefore she was admitted for UTI and uncontrolled HTN. She was started on norvasc for HTN and meropenem for for UTI, its culture came back positive for e.coli and morganella morganii, both of them were sensitive to meropenem. Urologist consulted and they replaced the catheter with new one, clinically pt improved, bp stabilized therefore she will be d/c to home with HH with 7 more days of invanz IV and close f/u with her pcp and urologist as outpt. - Time Spent with Patient Total time spent providing and/or coordinating discharge services: - Constitutional Vitals: Temp Pulse Resp BP Pulse Ox 98.3 F 79 16 130/88 98 03/03/17 11:07 03/03/17 11:07 03/03/17 11:07 03/03/17 11:07 03/03/17 11:59 General appearance: Present: cooperative, A&O X 3, pleasant, answers questions appropriately - Respiratory Respiratory exam: Present: CTAB. Absent: rales, rhonchi, wheezes - Cardiovascular Cardiovascular exam: Present: RRR, +S1, +S2. Absent: clicks, diastolic murmur, rubs, systolic murmur - GI/Abdominal GI/Abdominal exam: Present: normal bowel sounds, soft. Absent: distended, firm , tenderness - Additional comments: suprapubic catheter in place - Extremities Exam Extremities exam: Present: warm, radial pulses palpable and symetrical. Absent : calf tenderness <Rajendra Fulton - Last Filed: 03/03/17 15:27> Date of Encounter: 03/03/17 - Discharge Diagnosis (1) UTI (urinary tract infection) due to urinary indwelling catheter Status: Acute Qualifiers: Indwelling urinary catheter type: indwelling urethral catheter Encounter type: subsequent encounter Qualified Code(s): T83.511D - Infection and inflammatory reaction due to indwelling urethral catheter, subsequent encounter ; N39.0 - Urinary tract infection, site not specified (2) Uncontrolled hypertension Status: Chronic (3) Diabetes mellitus Status: Chronic Qualifiers: Diabetes mellitus type: type 2 Diabetes mellitus complication status: without complication Diabetes mellitus intermodal customer service insulin use: without intermodal customer service use Qualified Code(s): E11.9 - Type 2 diabetes mellitus without complications (4) Hypothyroid Status: Chronic Qualifiers: Hypothyroidism type: unspecified Qualified Code(s): E03.9 - Hypothyroidism , unspecified (5) Obesity Priority: Secondary Status: Chronic Qualifiers: Obesity type: due to excess calories Obesity severity: morbid Qualified Code(s): E66.01 - Morbid (severe) obesity due to excess calories (6) Spina bifida Status: Chronic Qualifiers: Spinal region: unspecified Presence of hydrocephalus: unspecified hydrocephalus presence Qualified Code(s): Q05.9 - Spina bifida, unspecified (7) Neurogenic bladder Status: Chronic (8) E coli infection Priority: Secondary Status: Acute Comments: CAUTI (9) Bacterial infection due to Morganella morganii Priority: Secondary Status: Acute Comments: CAUTI Date of admission: 02/28/17 18:36 Primary care physician: Jessica Garces Consults: 02/28/17 20:24 Consult to Urology [CONS] Routine Consulting Provider: Urology [facility] Reason for Consult: change suprapubic catheter Call Completed: No 03/03/17 08:00 Consult to Station Engineer [CONS] Routine Reason for SW Consult: Probable home IV abx Hospital course: Ms. Chapa is a 47 year old female - Time Spent with Patient Total time spent providing and/or coordinating discharge services: 38min - Constitutional Vitals: Temp Pulse Resp BP Pulse Ox 98.3 F 79 16 130/88 98 03/03/17 11:07 03/03/17 11:07 03/03/17 11:07 03/03/17 11:07 03/03/17 11:59 - Attending Attestation I examined this patient and my medical decision-making was reviewed with the Resident Physician on 03/03/17. I agree with the documented findings, disposition and treatment plan as described except to the extent set forth below. Ms. Chapa is feeling OK. She had some blood in stool after hard BM and some diarrhea. No CP or SOB. Otherwise feels OK. No fever. Vitals stable. Exam Alert. Comfortable Heart reg Lungs clear now. No bleeding noted Plan D/C home on IV Invanz for a week Follow with PCP Home care
--- NOTE | 2017-03-03 13:06 | Physician Discharge Referral ---
Home Health/Hosp Referral Info Transfer to: Home Health Attending Provider: dr. casiano Provider in Charge Post Discharge: PCP - Diagnosis (1) UTI (urinary tract infection) due to urinary indwelling catheter Priority: Primary Status: Acute (2) Morbid obesity Status: Acute (3) Hypothyroid Status: Chronic (4) Diabetes mellitus Status: Chronic (5) Uncontrolled hypertension Status: Chronic (6) Spina bifida Status: Chronic (7) Neurogenic bladder Status: Chronic - Respiratory Orders None Smoking Cessation: Smoking cessation has been advised. For more information, call the [place] Tobacco Quit Line at 0-262-JWAX-NOW. - Diet/Nutrition Diet/Nutrition Orders: Cardiac (and diabetic) - Activity Activity Orders: Bedrest - Services Needed Following services are medically necessary services: Nursing, Home Health Aide, Home Infusion Other Treatments: Invanz IV infusion for 7 days - Transfer Medications Prescriptions: amLODIPine [Norvasc] 5 mg PO DAILY #30 tablet Ertapenem [INVanz] 1,000 mg IVPB DAILY 7 Days Home Medications: Albuterol Sulfate [Albuterol Inhaler] 2 puff IH Q4HR PRN 04/25/15 [History] Citalopram [CeleXA] 20 mg PO QPM 04/25/15 [History] Furosemide [Lasix] 20 mg PO QAM 04/25/15 [History] Levothyroxine [Synthroid] 175 mcg PO QAM 04/25/15 [History] Potassium Chloride 10 meq PO QID 04/25/15 [History] Amitriptyline [Elavil] 25 mg PO HS 02/07/16 [History] CloNIDine Patch [Catapres-Tts] 0.2 mg TD QWEEK 02/07/16 [History] Albuterol Neb [Proventil Neb] 2.5 mg IH TID PRN 02/28/17 [History] Gabapentin [Neurontin] 100 mg PO HS 02/28/17 [History] SitaGLIPtin [Januvia] 25 mg PO DAILY PRN 02/28/17 [History] Triamcinolone Acet 0.1% CRM [Kenalog] 1 appl TP BID 02/28/17 [History] Water for Irrigation (sterile) [Water for irrigation (sterile)] 1,000 ml IR AD 02/28/17 [History] Ertapenem [INVanz] 1,000 mg IVPB DAILY 7 Days 03/03/17 [Rx] amLODIPine [Norvasc] 5 mg PO DAILY #30 tablet 03/03/17 [Rx] Allergies/Adverse Reactions: Allergies cephalexin [From Keflex] Allergy (Verified 02/16/17 22:21) Hives omeprazole Adverse Reaction (Verified 02/16/17 22:21) Nausea Certification: Further, I certify that my clinical findings support that this patient is homebound (i.e. absences from home require considerable and taxing effort and are for medical reasons or [facility] or infrequently or short duration when for other reasons) because: she is having difficulty getting in/out of vehicle. Homebound Reason: Leaving home requires considerable and taxing effort due to condition Attestation: My signature below is to certify that this patient is under my care and that I, or nurse practitioner, or a physician's assistant case manager working with me, has a face-to -face encounter with this patient.
== END 2017-03-03 16:37 | disposition home health service (06) ==
LOC: 2NENU 13:05 → EMEROO 13:05 → 2NENU 19:55
PROVIDERS: ADMIT Internal Medicine; ATTEND Internal Medicine

== ENCOUNTER 2017-08-29 16:28 | Inpatient (IN) ==
[2017-08-29] MEDS ORDERED: 0.9 % Sodium Chloride 1,000 ML IVC ONE (19:30)
--- NOTE | 2017-08-29 19:41 | Emergency Department Note ---
Disposition Clinical Impression: Complicated UTI (urinary tract infection) Disposition: Admitted As Inpatient Referrals: Jessica Garces MD [Primary Care Provider] - Forms: ED Satisfaction Letter General Adult HPI - General Chief complaint: ED Urogenital-Female Stated complaint: UTI Time Seen by Provider: 08/29/17 18:55 Source: patient Limitations: no limitations Nursing Notes Reviewed: Yes Vital Signs Reviewed: Yes - History of Present Illness HPI Narrative: Patient presents for evaluation of urinary tract infection. Patient will received a letter in the mail from the emergency department stating she needs to be reevaluated for a complicated UTI. Patient states that her phone number changed so they may have likely cold but she was not able to receive her messages. Patient has a history of spina bifida and has self catheter ever since she was 8 years old. The patient received a suprapubic catheter secondary to complications. Patient had been doing well with this but received a dilation and a new catheter approximately one week ago. Patient states that she has had some mild irritation around this area. She has she has feeling of "fatigue and tiredness". Patient has not had chest pain or shortness of breath. Patient states mild dry cough for the last 2 days. Patient is afebrile and not tachycardic on presentation. Patient's previous urine cultures show, Rosalina UTI with multiple organisms and varied resistance. Patient will undergo further evaluation for infection and likely admission to the hospital for IV antibiotics. Pain Scale: 3 - Related Data Home Medications Medication Instructions Recorded Confirmed Albuterol Sulfate [Albuterol 2 puff IH Q4HR PRN 04/25/15 08/29/17 Inhaler] Citalopram [CeleXA] 20 mg PO QPM 04/25/15 08/29/17 Levothyroxine [Synthroid] 175 mcg PO QAM 04/25/15 08/29/17 Potassium Chloride 10 meq PO BID 04/25/15 08/29/17 Amitriptyline [Elavil] 25 mg PO HS 02/07/16 08/29/17 Albuterol Neb [Proventil Neb] 2.5 mg IH TID PRN 02/28/17 08/29/17 Furosemide [Lasix] 40 mg PO DAILY 08/29/17 08/29/17 Previous Rx's Medication Instructions Recorded amLODIPine [Norvasc] 5 mg PO DAILY #30 tablet 03/03/17 Ciprofloxacin [Cipro] 500 mg PO BID #20 tablet 08/10/17 Allergies Allergy/AdvReac Type Severity Reaction Status Date / Time cephalexin [From Keflex] Allergy Hives Verified 08/29/17 20:38 omeprazole AdvReac Nausea Verified 08/29/17 20:38 Review of Systems: CONSTITUTIONAL: Weakness and fatigue; fever of 100.0 at home No weight loss, HEENT: Eyes: No visual changes. Ears, Nose, Throat: No hearing loss, difficulty talking or unable to swallow. SKIN: No rash or itching. CARDIOVASCULAR: No chest pain, chest pressure or chest discomfort. No palpitations or edema. RESPIRATORY: Dry nonproductive cough No shortness of breath GASTROINTESTINAL: Mild discomfort around suprapubic site GENITOURINARY: Suprapubic catheter producing purple urine which happens when she has a UTI NEUROLOGICAL: No headache, dizziness, syncope, paralysis, ataxia, numbness or tingling in the extremities. No change in bowel or bladder control. MUSCULOSKELETAL: No muscle pain, back pain, joint pain or stiffness. Past Medical History - Past Medical History Medical history: Reports: diabetes, hyperlipidemia, hypertension, thyroid disease, other Surgical history: Reports: orthopedic, other, ureteral stent, other Psychiatric history: Reports: anxiety, depression DIRECTOR AUTOMOTIVE history: Reports: no DIRECTOR AUTOMOTIVE history - Social History Smoking Status: Never smoker Smokeless Tobacco Status: No Alcohol use: Reports: none Drug use: Reports: none Physical Exam General: Well appearing, nontoxic, no acute distress Head: Normocephalic Atraumatic Eyes: PERRL, EOMI ENT: Airway patent, no stridor Neck: supple, no meningismus Chest: Lungs clear to auscultation bilateral Cardiac: Regular rate and rhythm, no murmurs, rubs or gallops Abdomen: soft, nontender, nondistended; no guarding, rebound, or tenderness to percussion; suprapubic catheter in place with mild irritation but no significant erythema or purulent drainage around the suprapubic site. No abdominal tenderness. Musculoskeletal: Calves symmetric, nontender, no palpable cord Skin: No rash, normal skin tone Neuro: Alert and Oriented to person, place, and time; No focal deficit, CN 2-12 symmetric and intact - General Limitations: no limitations General appearance: alert, in no apparent distress Course Course Narrative: The patient's cultures and placed on her chart. There is no single agent to cover all species. Patient was placed on ampicillin and ceftriaxone. - Consultations Consultation #1: Discussed with hospitalist. Patient accepted for admission. Patient's comorbidities include diabetes however this is diet controlled and patient is not on any medications. Time: 20:50 Vital Signs Temperature 98.0 F 08/29/17 16:32 Pulse Rate 94 08/29/17 16:32 Respiratory Rate 16 08/29/17 16:32 Blood Pressure 137/94 08/29/17 16:32 O2 Sat by Pulse Oximetry 94 08/29/17 16:32 Temperature 98.0 F 08/29/17 16:32 Pulse Rate 94 08/29/17 16:32 Respiratory Rate 16 08/29/17 16:32 Blood Pressure 137/94 08/29/17 16:32 O2 Sat by Pulse Oximetry 94 08/29/17 16:32 Oxygen Delivery Oxygen Delivery Room Air Medical Decision Making - Lab Data Result diagrams: 08/29/17 20:01 08/29/17 20:01 Lab Results 08/29/17 08/29/17 08/29/17 Range/Units 20:01 20:01 20:01 WBC 13.0 H (4.3-11.1) K/mcL RBC 5.55 H (3.82-4.97) M/mcL Hgb 13.9 (11.5-15.4) g/dL Hct 44.1 (35.3-44.9) % MCV 79.5 L (83.0-100.0) fL MCH 25.0 L (28.0-33.3) pg MCHC 31.5 L (31.6-35.5) g/dL RDW 15.6 H (11.5-14.5) % Plt Count 351 (140-400) K/mcL MPV 11.5 (9.4-12.4) fL Immature Gran % 0.4 (0-4) % Seg Neutrophils % 63.1 % Lymphocytes % 26.5 % Monocytes % 7.2 % Eosinophils % 2.2 % Basophils % 0.6 % Neutrophils # 8.2 (1.6-8.9) K/mcL Lymphocytes # 3.5 (0.6-4.6) K/mcL Monocytes # 0.9 (0.0-1.3) K/mcL Eosinophils # 0.3 (0.0-0.6) K/mcL Basophils # 0.1 (0.0-0.2) K/mcL Sodium 139 (136-145) mEq/L Potassium 3.2 L (3.5-4.5) mEq/L Chloride 101 (98-109) mEq/L Carbon Dioxide 22 (19-29) mEq/L BUN 15 (7-20) mg/dL Creatinine 0.79 (0.57-1.11) mg/dL Est GFR ( Amer) > 60 (> 60) Est GFR (Non-Af Amer) > 60 (> 60) BUN/Creatinine Ratio 19 (6-26) Glucose 109 H (70-99) mg/dL Calculated Osmolality 289 (280-300) Lactic Acid (0.5-2.2) mmol/L Calcium 9.6 (8.6-10.8) mg/dL Total Bilirubin 0.4 (0.2-1.2) mg/dL AST 20 (5-34) Units/L ALT 22 (0-55) Units/L Alkaline Phosphatase 140 H (38-126) Units/L Serum Total Protein 9.5 H (6.0-8.3) g/dL Albumin 3.5 (3.5-5.0) g/dL Globulin 6.0 H (2.4-3.5) g/dL Albumin/Globulin Ratio 0.6 L (1.1-2.2) Ur Specimen Adequacy See below A Urine Color Yellow (Yellow) Urine Clarity Cloudy A (Clear) Urine pH 7.5 (5.0-8.0) pH Units Ur Specific [place] 1.015 (1.010-1.025) Urine Protein Trace (Neg-Trace) mg/dL Urine Glucose (UA) Normal (Normal) mg/dL Urine Ketones Negative (Negative) mg/dL Urine Blood Trace H (Negative) Urine Nitrite Positive A (Negative) Urine Bilirubin Negative (Negative) Urine Urobilinogen Normal (Normal) mg/dL Ur Leukocyte Esterase Large H (Negative) Urine Microscopic RBC 0-3 (0-3) per hpf Urine Microscopic WBC 50-100 H (0-3) per hpf Ur Squamous Epith Cells Moderate H (None-Few) per lpf Urine Bacteria Moderate H (None-Few) per hpf Hyaline Casts None Seen (None-Few) per lpf Ur Culture Indicated? YES A (NO) 08/29/17 Range/Units 20:29 WBC (4.3-11.1) K/mcL RBC (3.82-4.97) M/mcL Hgb (11.5-15.4) g/dL Hct (35.3-44.9) % MCV (83.0-100.0) fL MCH (28.0-33.3) pg MCHC (31.6-35.5) g/dL RDW (11.5-14.5) % Plt Count (140-400) K/mcL MPV (9.4-12.4) fL Immature Gran % (0-4) % Seg Neutrophils % % Lymphocytes % % Monocytes % % Eosinophils % % Basophils % % Neutrophils # (1.6-8.9) K/mcL Lymphocytes # (0.6-4.6) K/mcL Monocytes # (0.0-1.3) K/mcL Eosinophils # (0.0-0.6) K/mcL Basophils # (0.0-0.2) K/mcL Sodium (136-145) mEq/L Potassium (3.5-4.5) mEq/L Chloride (98-109) mEq/L Carbon Dioxide (19-29) mEq/L BUN (7-20) mg/dL Creatinine (0.57-1.11) mg/dL Est GFR ( Amer) (> 60) Est GFR (Non-Af Amer) (> 60) BUN/Creatinine Ratio (6-26) Glucose (70-99) mg/dL Calculated Osmolality (280-300) Lactic Acid 0.8 (0.5-2.2) mmol/L Calcium (8.6-10.8) mg/dL Total Bilirubin (0.2-1.2) mg/dL AST (5-34) Units/L ALT (0-55) Units/L Alkaline Phosphatase (38-126) Units/L Serum Total Protein (6.0-8.3) g/dL Albumin (3.5-5.0) g/dL Globulin (2.4-3.5) g/dL Albumin/Globulin Ratio (1.1-2.2) Ur Specimen Adequacy Urine Color (Yellow) Urine Clarity (Clear) Urine pH (5.0-8.0) pH Units Ur Specific [place] (1.010-1.025) Urine Protein (Neg-Trace) mg/dL Urine Glucose (UA) (Normal) mg/dL Urine Ketones (Negative) mg/dL Urine Blood (Negative) Urine Nitrite (Negative) Urine Bilirubin (Negative) Urine Urobilinogen (Normal) mg/dL Ur Leukocyte Esterase (Negative) Urine Microscopic RBC (0-3) per hpf Urine Microscopic WBC (0-3) per hpf Ur Squamous Epith Cells (None-Few) per lpf Urine Bacteria (None-Few) per hpf Hyaline Casts (None-Few) per lpf Ur Culture Indicated? (NO) Attestation Statement - Attestation Attestation: I, Manuel Colón MD, personally evaluated this patient and discussed their management with the resident physician. I reviewed the resident's note and agree with the documented findings, medical decision making, and plan of care. 47-year-old female with history of spina bifida and a chronic suprapubic catheter presents for a urinary tract infection. Patient has chronic UTIs and was seen here several weeks ago. Her urine culture grew multiple organisms with multiple drug resistances. She was contacted and advised to return for IV antibiotics. She returns today complaining of continued cloudiness and discoloration of her urine. She denies any fever. She does complain of just feeling weak and fatigued which she states is typical when she has a urinary tract infection. No nausea or vomiting. On examination patient is a well-developed obese female in no acute distress. She is alert and oriented 3. There is no cyanosis or diaphoresis. Breath sounds are clear and equal bilaterally. Heart regular rate and rhythm. Abdomen is soft and nontender with normal bowel sounds. Labs reviewed. UTI present. The hospitalist, Dr. Ramey, was consulted and accepted admission of the patient.
[2017-08-29] MEDS ORDERED: Piperacillin/Tazobactam 3.375 GM in D5% in Water (Mini-Bag+) 100 ML IVPB ONE (19:50)
[2017-08-29] MEDS ORDERED: Piperacillin/Tazobactam 3.375 GM in Water for inj. (sterile) 20 ML IVPB ONE (20:00)
[2017-08-29 20:15] LABS: Basophils # 0.1 K/mcL (0.0-0.2); Basophils % 0.6 %; Eosinophils # 0.3 K/mcL (0.0-0.6); Eosinophils % 2.2 %; Hematocrit 44.1 % (35.3-44.9); Hemoglobin 13.9 g/dL (11.5-15.4); Immature Granulocytes % 0.4 % (0-4); Lymphocytes # 3.5 K/mcL (0.6-4.6); Lymphocytes % 26.5 %; Mean Corpuscular HGB Conc 31.5 g/dL (31.6-35.5); Mean Corpuscular Volume 79.5 fL (83.0-100.0); Mean Platelet Volume 11.5 fL (9.4-12.4); Monocytes # 0.9 K/mcL (0.0-1.3); Monocytes % 7.2 %; Neutrophils # 8.2 K/mcL (1.6-8.9); Platelet Count 351 K/mcL (140-400); Red Blood Count 5.55 M/mcL (3.82-4.97); Red Cell Distribution Width 15.6 % (11.5-14.5); Segmented Neutrophils % 63.1 %
[2017-08-29 20:27] LABS: Alanine Aminotransferase 22 Units/L (0-55); Albumin 3.5 g/dL (3.5-5.0); Albumin/Globulin Ratio 0.6 (1.1-2.2); Alkaline Phosphatase 140 Units/L (38-126); Aspartate Amino Transferase 20 Units/L (5-34); BUN/Creatinine Ratio 19 (6-26); Bilirubin,Total 0.4 mg/dL (0.2-1.2); Bilirubin,Urine Negative (Negative); Blood Urea Nitrogen 15 mg/dL (7-20); Blood,Urine Trace (Negative); Calcium 9.6 mg/dL (8.6-10.8); Carbon Dioxide 22 mEq/L (19-29); Chloride 101 mEq/L (98-109); Clarity,Urine Cloudy (Clear); Color,Urine Yellow (Yellow); Glucose 109 mg/dL (70-99); Glucose,Urine (UA) Normal (Normal); Ketones,Urine Negative (Negative); Leukocyte Esterase,Urine Large (Negative); Nitrite,Urine Positive (Negative); Osmolality,Calculated 289 (280-300); PH,Urine 7.5 pH Units (5.0-8.0); Potassium 3.2 mEq/L (3.5-4.5); Protein,Urine Trace mg/dL (Neg-Trace); Sodium 139 mEq/L (136-145); Specific Gravity,Urine 1.015 (1.010-1.025); Total Protein 9.5 g/dL (6.0-8.3); Urobilinogen,Urine Normal (Normal); eGFR For African Americans > 60 (> 60); eGFR For Non-African Americans > 60 (> 60)
[2017-08-29 20:30] LABS: RBC,Urine 0-3 per hpf (0-3); Squamous Epithelial Cell,Urine Moderate per lpf (None-Few); WBC,Urine 50-100 per hpf (0-3)
[2017-08-29 20:48] LABS: Bacteria,Urine Moderate per hpf (None-Few); Hyaline Casts,Urine None Seen per lpf (None-Few)
[2017-08-30] MEDS ORDERED: Ondansetron 4 MG/2 ML VIAL IVP PRN (03:23)
[2017-08-30] MEDS ORDERED: Albuterol 2.5 MG/3 ML NEBULIZER IH PRN (03:24)
[2017-08-30] MEDS ORDERED: Acetaminophen 325 MG TABLET PO PRN (03:25)
[2017-08-30] MEDS ORDERED: Mag Hydrox/Al Hydrox/Simeth 30 ML UDC PO PRN (03:25)
[2017-08-30] MEDS ORDERED: Naloxone 0.4 MG/ML INJ IVP PRN (03:25)
[2017-08-30] MEDS ORDERED: D5% in Water 1,000 ML IVC PRN (03:28)
[2017-08-30] MEDS ORDERED: Dextrose Gel 15 GM PO PRN ×2 (03:28)
[2017-08-30] MEDS ORDERED: *HR* Dextrose 50 % in Water (Syg) 50 ML SYRINGE IVP PRN (03:28)
[2017-08-30] MEDS ORDERED: 0.9 % Sodium Chloride 1,000 ML IVC SCH (03:30)
--- NOTE | 2017-08-30 03:32 | Internal Med History&Physical ---
Date of Encounter: 08/30/17 Time of Encounter: 22:00 Assessment and Plan (1) UTI (urinary tract infection) due to urinary indwelling catheter Current visit: Yes Status: Acute Patient urine culture showed Klebsiella enterococcus and Morganella. Urine culture reviewed and patient will be started on IV Zosyn. Follow CBC Qualifiers: Indwelling urinary catheter type: indwelling urethral catheter Encounter type: initial encounter Qualified Code(s): T83.511A - Infection and inflammatory reaction due to indwelling urethral catheter, initial encounter; N39.0 - Urinary tract infection, site not specified; N39.0 - Urinary tract infection, site not specified (2) Diabetes mellitus Current visit: Yes Status: Chronic KJ 4 times a day with sliding scale coverage Qualifiers: Diabetes mellitus type: type 2 Diabetes mellitus complication status: with unspecified complications Diabetes mellitus residential insulin use: unspecified residential insulin use status Qualified Code(s): E11.8 - Type 2 diabetes mellitus with unspecified complications (3) Spina bifida Current visit: Yes Status: Chronic Qualifiers: Spinal region: unspecified Presence of hydrocephalus: without hydrocephalus Qualified Code(s): Q05.9 - Spina bifida, unspecified (4) Neurogenic bladder Current visit: Yes Status: Chronic History of neurogenic bladder and indwelling catheter it has been changed on the first of the month (5) Morbid obesity Current visit: No Status: Acute Counseling provided Internal Medicine - H&P: HPI Chief complaint: UTI Admitted From: Home Plans for Post Hospital Care: Home History of present illness: Ms. Chapa is a 47 year old female last medical history significant for spina bifida/neurogenic bladder with indwelling catheter, recurrent urine infection, diabetes hypertension dyslipidemia. Patient was seen in ER previously and was discharged home on Cipro. She continued to have fever and some discomfort. Urine culture yield multiple organisms including Klebsiella enterococcus and Morganella. ER contacted her again and asked her to return for IV antibiotic treatment. She is still developing low-grade temperature with elevated white count in the range of 13,000. In the ER she has been given Zosyn. Patient denies any abdominal pain dysuria urgency frequency or chills diaphoresis hematuria or any other symptoms otherwise though she did have low-grade temperature at home. Past Med Surg Social Fam HX - Past Medical History Medical history: diabetes, hyperlipidemia, hypertension, thyroid disease, other Psychiatric history: anxiety, depression - Past Surgical History Surgical History: orthopedic, other, ureteral stent, other - Social History Smoking Status: Never smoker Smokeless Tobacco Status: No Alcohol use: none Drug use: none - Family History Mother Living Status: Still Living Hx Family Cardiac Disorders: Yes (Coronary artery disease) Hx Family Endocrine Disorder: Yes (Hypothyroidism) Hx Family Neuromuscular Disorders: Yes (Alzeihmers, dementia) Hx Family Neurologic Disorders: Yes (Dementia) Father Family Member Ethnicity: Non- Living Status: Hx Family Cardiac Disorders: Yes (CHF) Hx Family Respiratory Disorders: Yes (Asthma, Emphysema) Hx Family Cancer: Yes (Testicular, Lung) Hx Family GI Disorders: No Hx Family Endocrine Disorder: Yes (DM) Brother Hx Family Cardiac Disorders: Yes (Hypertension and hyperlipidemia) Hx Family Endocrine Disorder: Yes (Diabetes mellitus) Hx Family Neurologic Disorders: Yes (Spina bifida) Internal Medicine - H&P: Meds Albuterol Sulfate [Albuterol Inhaler] 2 puff IH Q4HR PRN 04/25/15 [History] Citalopram [CeleXA] 20 mg PO QPM 04/25/15 [History] Levothyroxine [Synthroid] 175 mcg PO QAM 04/25/15 [History] Potassium Chloride 10 meq PO BID 04/25/15 [History] Amitriptyline [Elavil] 25 mg PO HS 02/07/16 [History] Albuterol Neb [Proventil Neb] 2.5 mg IH TID PRN 02/28/17 [History] amLODIPine [Norvasc] 5 mg PO DAILY #30 tablet 03/03/17 [Rx] Ciprofloxacin [Cipro] 500 mg PO BID #20 tablet 08/10/17 [Rx] Furosemide [Lasix] 40 mg PO DAILY 08/29/17 [History] 3 Allergy/AdvReac Type Severity Reaction Status Date / Time cephalexin [From Keflex] Allergy Hives Verified 08/29/17 20:38 omeprazole AdvReac Nausea Verified 08/29/17 20:38 All Systems PM: A 10-system review of systems was performed and is negative for pertinent findings except as documented above in the HPI. - Constitutional Constitutional: no chills, no fever(s), no night sweats - EENT Eyes: no change in vision, no discharge, no pain, no photophobia Ears: no ear discharge, no ear pain, no tinnitus Nose, mouth and throat: no dysphagia, no nasal discharge, no neck pain, no sore throat - Cardiovascular Cardiovascular ROS IM: no chest pain, no diaphoresis, no dyspnea, no lightheadedness, no palpitations, no syncope - Respiratory Respiratory: no cough, no dyspnea, no wheezing, no excessive phlegm production - Gastrointestinal Gastrointestinal: no abdominal pain, no diarrhea, no hematemesis, no hematochezia, no melena, no nausea, no vomiting - Genitourinary Genitourinary: no change in urinary stream, no dysuria, no flank pain, no hematuria - Musculoskeletal Musculoskeletal ROS IM: no numbness, no tingling - Integumentary Integumentary IM: no rash, no unusual bruising - Neurological Neurological ROS: no confusion, no convulsions, no focal weakness, no numbness, no tingling, no tremor(s) - Hematologic/Lymphatic Hematologic/Lymphatic: no easy bruising - Constitutional Vitals: Temp Pulse Resp BP Pulse Ox 98.2 F 73 16 142/80 100 08/29/17 21:56 08/29/17 21:56 08/29/17 21:56 08/29/17 21:56 08/29/17 21:56 - Head Head exam: Present: atraumatic, normocephalic - Eye Eye exam: Present: PERRL, conjuntiva pink, sclera anicteric Pupils: Present: PERRL - Neck Neck exam general surgery: Present: supple, trachea midline. Absent: lymphadenopathy - Respiratory Respiratory exam: Present: CTAB. Absent: accessory muscle use, rales, rhonchi, wheezes - Cardiovascular Cardiovascular exam: Present: RRR, +S1, +S2. Absent: diastolic murmur, gallop, rubs, systolic murmur - GI/Abdominal GI/Abdominal exam: Present: normal bowel sounds, soft, no peritoneal signs. Absent: distended, tenderness - Extremities Exam Extremities exam: Present: warm, radial pulses palpable and symmetrical. Absent : calf tenderness, cyanotic, pedal edema - Neurological Exam Neurological exam: Present: CN II-XII intact, oriented X3, no focal deficits. Absent: pronater drift, facial droop, speech deficit - Skin Skin exam: Present: dry, intact Internal Med - H&P Results - Labs CBC & Chem 7: 08/29/17 20:01 08/29/17 20:01
[2017-08-30 06:52] LABS: Basophils # 0.1 K/mcL (0.0-0.2); Basophils % 0.8 %; Eosinophils # 0.2 K/mcL (0.0-0.6); Eosinophils % 2.5 %; Immature Granulocytes % 0.3 % (0-4); Lymphocytes # 2.7 K/mcL (0.6-4.6); Lymphocytes % 29.8 %; Mean Corpuscular HGB Conc 31.1 g/dL (31.6-35.5); Mean Corpuscular Volume 80.4 fL (83.0-100.0); Mean Platelet Volume 11.4 fL (9.4-12.4); Monocytes # 0.7 K/mcL (0.0-1.3); Monocytes % 7.9 %; Neutrophils # 5.2 K/mcL (1.6-8.9); Platelet Count 292 K/mcL (140-400); Red Blood Count 4.48 M/mcL (3.82-4.97); Red Cell Distribution Width 15.7 % (11.5-14.5); Segmented Neutrophils % 58.7 %
[2017-08-30 06:54] LABS: Hemoglobin 11.2 g/dL (11.5-15.4)
[2017-08-30 06:59] LABS: Hemoglobin A1C 5.8 %
[2017-08-30 07:03] LABS: BUN/Creatinine Ratio 18 (6-26); Blood Urea Nitrogen 14 mg/dL (7-20); Calcium 8.6 mg/dL (8.6-10.8); Carbon Dioxide 26 mEq/L (19-29); Chloride 105 mEq/L (98-109); Glucose 111 mg/dL (70-99); Osmolality,Calculated 287 (280-300); Potassium 3.5 mEq/L (3.5-4.5); Sodium 138 mEq/L (136-145); eGFR For African Americans > 60 (> 60); eGFR For Non-African Americans > 60 (> 60)
[2017-08-30] MEDS ORDERED: Piperacillin/Tazobactam 3.375 GM/200 ML BAG IVPB SCH (08:00)
[2017-08-30] MEDS: amLODIPine 5 MG TABLET PO SCH (08:49)
[2017-08-30] MEDS: *HR* Heparin 5,000 UNIT/ML VIAL SQ SCH ×2 (08:50→16:30)
[2017-08-30] MEDS: Furosemide 40 MG TABLET PO SCH (08:50)
[2017-08-30] MEDS: Insulin LISPRO 300 UNITS/3 ML VIAL SQ SCH ×4 (09:07→20:40)
--- NOTE | 2017-08-30 12:41 | Internal Med Progress Note ---
Date of Encounter: 08/30/17 Time of Encounter: 09:40 - Assessment and plan (1) UTI (urinary tract infection) due to urinary indwelling catheter Current Visit: Yes Status: Acute Assessment and plan: We will keep the patient on Zosyn. She has had a urinalysis sent again which looks infected as well. We will follow-up on those cultures and adjust antibiotics as needed. Her WBC count has improved. Qualifiers: Indwelling urinary catheter type: indwelling urethral catheter Encounter type: initial encounter Qualified Code(s): T83.511A - Infection and inflammatory reaction due to indwelling urethral catheter, initial encounter; N39.0 - Urinary tract infection, site not specified; N39.0 - Urinary tract infection, site not specified (2) HTN (hypertension) Current Visit: No Status: Chronic Assessment and plan: Blood pressure is stable this morning. The patient is on Norvasc 5 mg daily. She also takes Lasix 40 mg daily those have been restarted. Qualifiers: Hypertension type: essential hypertension Qualified Code(s): I10 - Essential (primary) hypertension (3) Hypothyroid Current Visit: No Status: Chronic Assessment and plan: Continue with levothyroxine 175 daily. Qualifiers: Hypothyroidism type: unspecified Qualified Code(s): E03.9 - Hypothyroidism , unspecified (4) Diabetes mellitus Current Visit: Yes Status: Chronic Assessment and plan: Continue with insulin sliding scale. Continue with Accu-Cheks Qualifiers: Diabetes mellitus type: type 2 Diabetes mellitus complication status: with unspecified complications Diabetes mellitus technician terminal and repeater insulin use: unspecified jail insulin use status Qualified Code(s): E11.8 - Type 2 diabetes mellitus with unspecified complications (5) DVT prophylaxis Current Visit: No Status: Acute Assessment and plan: Heparin subcutaneous - Subjective Interval history: No acute events. The patient was admitted yesterday night after she had been called or sent a letter in the mail to come in and get proper treatment for her urinary tract infection she will multiple drugs on the previous urinalysis that was checked back in July after she had presented to the emergency department with a urinary tract infection and discharged on Cipro. She has had no fever episode and has been doing quite well per her account. - Constitutional Vitals: Temp Pulse Resp BP Pulse Ox 98.3 F 64 18 106/68 96 08/30/17 11:18 08/30/17 11:18 08/30/17 11:18 08/30/17 11:18 08/30/17 11:18 Exam: GEN: NAD CVS: RRR. S1, S2, No m/r/g RESP: CTAB ABD: Soft, NT, ND, +BS EXT: No edema. 2+ DP, No rashes NEURO: Nonfocal Internal Medicine: Result - Labs CBC & Chem 7: 08/30/17 06:28 08/30/17 06:28 Labs: Short CBC 08/30/17 Range/Units 06:28 WBC 8.9 (4.3-11.1) K/mcL Hgb 11.2 L D (11.5-15.4) g/dL Hct 36.0 (35.3-44.9) % Plt Count 292 (140-400) K/mcL Neutrophils # 5.2 (1.6-8.9) K/mcL BMP 08/30/17 06:28 Sodium 138 Potassium 3.5 Chloride 105 Carbon Dioxide 26 BUN 14 Creatinine 0.76 Glucose 111 H Calcium 8.6 - VTE Documentation of Mechanical Device: Graduated compression elastic hosiery Consult Discharge Plan - Plan Referrals: Jessica Garces MD [Primary Care Provider] -
[2017-08-30] MEDS: Piperacillin/Tazobactam 3.375 GM/200 ML BAG IVPB SCH (19:44)
[2017-08-31] MEDS: *HR* Heparin 5,000 UNIT/ML VIAL SQ SCH ×3 (00:01→17:41)
[2017-08-31] MEDS: Piperacillin/Tazobactam 3.375 GM/200 ML BAG IVPB SCH ×3 (03:34→19:54)
[2017-08-31 04:53] LABS: Basophils # 0.1 K/mcL (0.0-0.2); Basophils % 1.2 %; Eosinophils # 0.2 K/mcL (0.0-0.6); Eosinophils % 3.5 %; Hematocrit 37.2 % (35.3-44.9); Hemoglobin 11.9 g/dL (11.5-15.4); Immature Granulocytes % 0.3 % (0-4); Lymphocytes # 3.3 K/mcL (0.6-4.6); Lymphocytes % 47.3 %; Mean Corpuscular Hemoglobin 25.6 pg (28.0-33.3); Mean Corpuscular Volume 80.2 fL (83.0-100.0); Mean Platelet Volume 11.4 fL (9.4-12.4); Monocytes # 0.6 K/mcL (0.0-1.3); Monocytes % 8.1 %; Neutrophils # 2.8 K/mcL (1.6-8.9); Platelet Count 283 K/mcL (140-400); Red Blood Count 4.64 M/mcL (3.82-4.97); Red Cell Distribution Width 15.9 % (11.5-14.5); Segmented Neutrophils % 39.6 %
[2017-08-31 04:58] LABS: BUN/Creatinine Ratio 15 (6-26); Blood Urea Nitrogen 11 mg/dL (7-20); Calcium 9.2 mg/dL (8.6-10.8); Carbon Dioxide 25 mEq/L (19-29); Chloride 108 mEq/L (98-109); Glucose 102 mg/dL (70-99); Osmolality,Calculated 288 (280-300); Potassium 3.9 mEq/L (3.5-4.5); Sodium 139 mEq/L (136-145); eGFR For African Americans > 60 (> 60); eGFR For Non-African Americans > 60 (> 60)
[2017-08-31] MEDS: amLODIPine 5 MG TABLET PO SCH (09:20)
[2017-08-31] MEDS: Furosemide 40 MG TABLET PO SCH (09:21)
[2017-08-31] MEDS: Insulin LISPRO 300 UNITS/3 ML VIAL SQ SCH ×4 (09:21→22:04)
--- NOTE | 2017-08-31 11:07 | Internal Med Progress Note ---
Date of Encounter: 08/31/17 Time of Encounter: 09:00 - Assessment and plan (1) UTI (urinary tract infection) due to urinary indwelling catheter Current Visit: Yes Status: Acute Assessment and plan: We will keep the patient on Zosyn. She is growing gram-negative rods on her current urine. We will follow up on the cultures and adjust antibiotics as needed. My goal is discharge on oral antibiotics and avoid IV antibiotics at discharge. Her WBC count remains normal. Qualifiers: Indwelling urinary catheter type: indwelling urethral catheter Encounter type: initial encounter Qualified Code(s): T83.511A - Infection and inflammatory reaction due to indwelling urethral catheter, initial encounter; N39.0 - Urinary tract infection, site not specified; N39.0 - Urinary tract infection, site not specified (2) HTN (hypertension) Current Visit: No Status: Chronic Assessment and plan: Blood pressure is stable this morning. The patient is on Norvasc 5 mg daily. She also takes Lasix 40 mg daily Qualifiers: Hypertension type: essential hypertension Qualified Code(s): I10 - Essential (primary) hypertension (3) Hypothyroid Current Visit: No Status: Chronic Assessment and plan: Continue with levothyroxine 175 daily. Qualifiers: Hypothyroidism type: unspecified Qualified Code(s): E03.9 - Hypothyroidism , unspecified (4) Diabetes mellitus Current Visit: Yes Status: Chronic Assessment and plan: Continue with insulin sliding scale. Continue with Accu-Cheks Qualifiers: Diabetes mellitus type: type 2 Diabetes mellitus complication status: with unspecified complications Diabetes mellitus joint terminal attack controller insulin use: unspecified joint terminal attack controller insulin use status Qualified Code(s): E11.8 - Type 2 diabetes mellitus with unspecified complications (5) DVT prophylaxis Current Visit: No Status: Acute Assessment and plan: Heparin subcutaneous - Subjective Interval history: No acute events. She has been afebrile. She has had no more abdominal pain in the lower abdomen as she did yesterday. - Constitutional Vitals: Temp Pulse Resp BP Pulse Ox 97.7 F 56 17 111/73 96 08/31/17 08:15 08/31/17 08:15 08/31/17 08:15 08/31/17 08:15 08/31/17 08:15 Exam: GEN: NAD CVS: RRR. S1, S2, No m/r/g RESP: CTAB ABD: Soft, NT, ND, +BS EXT: No edema. 2+ DP, No rashes NEURO: Nonfocal Internal Medicine: Result - Labs CBC & Chem 7: 08/31/17 04:38 08/31/17 04:38 Labs: Short CBC 08/31/17 Range/Units 04:38 WBC 7.0 (4.3-11.1) K/mcL Hgb 11.9 (11.5-15.4) g/dL Hct 37.2 (35.3-44.9) % Plt Count 283 (140-400) K/mcL Neutrophils # 2.8 (1.6-8.9) K/mcL BMP 08/31/17 04:38 Sodium 139 Potassium 3.9 Chloride 108 Carbon Dioxide 25 BUN 11 Creatinine 0.72 Glucose 102 H Calcium 9.2 - VTE Documentation of Mechanical Device: Graduated compression elastic hosiery Consult Discharge Plan - Plan Referrals: Jessica Garces MD [Primary Care Provider] -
[2017-09-01] MEDS: *HR* Heparin 5,000 UNIT/ML VIAL SQ SCH ×2 (00:11→08:10)
--- NOTE | 2017-09-01 02:20 | Electrocardiograph Report ---
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
[2017-09-01] MEDS: Piperacillin/Tazobactam 3.375 GM/200 ML BAG IVPB SCH (03:51)
[2017-09-01 06:04] LABS: Basophils # 0.1 K/mcL (0.0-0.2); Basophils % 0.9 %; Eosinophils # 0.2 K/mcL (0.0-0.6); Eosinophils % 2.8 %; Hematocrit 37.5 % (35.3-44.9); Hemoglobin 11.9 g/dL (11.5-15.4); Immature Granulocytes % 0.1 % (0-4); Lymphocytes # 3.1 K/mcL (0.6-4.6); Lymphocytes % 39.6 %; Mean Corpuscular HGB Conc 31.7 g/dL (31.6-35.5); Mean Corpuscular Hemoglobin 25.3 pg (28.0-33.3); Mean Corpuscular Volume 79.6 fL (83.0-100.0); Mean Platelet Volume 11.3 fL (9.4-12.4); Monocytes # 0.6 K/mcL (0.0-1.3); Monocytes % 7.1 %; Neutrophils # 3.9 K/mcL (1.6-8.9); Platelet Count 300 K/mcL (140-400); Red Blood Count 4.71 M/mcL (3.82-4.97); Red Cell Distribution Width 15.5 % (11.5-14.5); Segmented Neutrophils % 49.5 %
[2017-09-01 06:16] LABS: BUN/Creatinine Ratio 18 (6-26); Blood Urea Nitrogen 13 mg/dL (7-20); Carbon Dioxide 25 mEq/L (19-29); Chloride 105 mEq/L (98-109); Glucose 104 mg/dL (70-99); Magnesium 1.8 mg/dL (1.6-2.6); Osmolality,Calculated 286 (280-300); Phosphorous 3.3 mg/dL (2.3-4.7); Potassium 3.9 mEq/L (3.5-4.5); Sodium 138 mEq/L (136-145); eGFR For African Americans > 60 (> 60); eGFR For Non-African Americans > 60 (> 60)
--- NOTE | 2017-09-01 07:44 | Discharge Summary ---
Date of Encounter: 09/01/17 Time of Encounter: 07:45 - Discharge Diagnosis (1) UTI (urinary tract infection) due to urinary indwelling catheter Priority: Primary Status: Acute Qualifiers: Indwelling urinary catheter type: indwelling urethral catheter Encounter type: initial encounter Qualified Code(s): T83.511A - Infection and inflammatory reaction due to indwelling urethral catheter, initial encounter; N39.0 - Urinary tract infection, site not specified; N39.0 - Urinary tract infection, site not specified (2) HTN (hypertension) Priority: Secondary Status: Chronic Qualifiers: Hypertension type: essential hypertension Qualified Code(s): I10 - Essential (primary) hypertension (3) Hypothyroid Priority: Secondary Status: Chronic Qualifiers: Hypothyroidism type: unspecified Qualified Code(s): E03.9 - Hypothyroidism , unspecified (4) Diabetes mellitus Priority: Secondary Status: Chronic Qualifiers: Diabetes mellitus type: type 2 Diabetes mellitus complication status: with unspecified complications Diabetes mellitus termite control representative insulin use: unspecified termite control representative insulin use status Qualified Code(s): E11.8 - Type 2 diabetes mellitus with unspecified complications - Discharge Medications Prescriptions: cefTRIAXone [Rocephin] 1,000 mg IVPB DAILY #7 vial Home Medications: Albuterol Sulfate [Albuterol Inhaler] 2 puff IH Q4HR PRN 04/25/15 [History] Citalopram [CeleXA] 20 mg PO QPM 04/25/15 [History] Levothyroxine [Synthroid] 175 mcg PO QAM 04/25/15 [History] Potassium Chloride 10 meq PO BID 04/25/15 [History] Amitriptyline [Elavil] 25 mg PO HS 02/07/16 [History] Albuterol Neb [Proventil Neb] 2.5 mg IH TID PRN 02/28/17 [History] amLODIPine [Norvasc] 5 mg PO DAILY #30 tablet 03/03/17 [Rx] Ciprofloxacin [Cipro] 500 mg PO BID #20 tablet 08/10/17 [Rx] Furosemide [Lasix] 40 mg PO DAILY 08/29/17 [History] cefTRIAXone [Rocephin] 1,000 mg IVPB DAILY #7 vial 09/01/17 [Rx] Allergies/Adverse Reactions: 3 Allergy/AdvReac Type Severity Reaction Status Date / Time cephalexin [From Keflex] Allergy Hives Verified 08/29/17 20:38 omeprazole AdvReac Nausea Verified 08/29/17 20:38 Date of admission: 08/30/17 03:25 Primary care physician: Jessica Garces - Patient Status Disposition: Home, Self-Care Condition: Fair - Discharge Instructions Instructions: Ceftriaxone (Injection) Follow Up With: Jessica Garces MD [Primary Care Provider] - 09/08/17 10:45 am - Diet and Activity Activity: increase activity as tolerated Diet: diabetic diet Hospital course: Ms. Chapa is a 47 year old female with past medical history significant for spina bifida/neurogenic bladder with indwelling catheter, recurrent urine infection, diabetes hypertension dyslipidemia. She was admitted to the hospitalist service for urinary tract infection. Please note that the patient was seen was seen in ER previously and was discharged home on Cipro for your tract infection. At that time there was no cultures that was finalized however the patient was sent a letter in the mail saying that she needed to come back to get treatment probably as that bacteria that she was resistant to Cipro. She had another urinalysis was collected she was put on IV Zosyn. She had an elevated white count on initial presentation which normalized with IV Zosyn. She had lower abdominal pain on admission which resolved with IV antibiotics. Her cultures from the urinalysis collected this admission grew Morganella which was resistant to many antibiotics. The only options we had left where IV antibiotics. I did change her to IV ceftriaxone at discharge for which I recommend 10 total days of IV antibiotics to treat the urinary tract infection. Please note that her urine cultures from previous admission grew Klebsiella pneumoniae. enterococcus faecalis, and Morganella morganii. He was discharged in a stable condition on 09/01/2017. - Time Spent with Patient Total time spent providing and/or coordinating discharge services: - Constitutional Vitals: Temp Pulse Resp BP Pulse Ox 97.7 F 59 13 104/71 95 09/01/17 03:54 09/01/17 03:54 09/01/17 03:54 09/01/17 03:54 09/01/17 03:54 Exam: GEN: NAD CVS: RRR. S1, S2, No m/r/g RESP: CTAB ABD: Soft, NT, ND, +BS EXT: No edema. 2+ DP. No rashes NEURO: Nonfocal - VTE Documentation of Mechanical Device: Graduated compression elastic hosiery
[2017-09-01] MEDS: Insulin LISPRO 300 UNITS/3 ML VIAL SQ SCH ×2 (08:10→12:12)
[2017-09-01] MEDS: Furosemide 40 MG TABLET PO SCH (08:11)
[2017-09-01] MEDS: amLODIPine 5 MG TABLET PO SCH (08:11)
--- NOTE | 2017-09-01 08:12 | Physician Discharge Referral ---
Home Health/Hosp Referral Info Transfer to: Home Health - Diagnosis (1) UTI (urinary tract infection) due to urinary indwelling catheter Status: Acute (2) HTN (hypertension) Priority: Secondary Status: Chronic (3) Hypothyroid Priority: Secondary Status: Chronic (4) Diabetes mellitus Priority: Secondary Status: Chronic - Respiratory Orders Smoking Cessation: Smoking cessation has been advised. For more information, call the [place] Tobacco Quit Line at 5-403-OYPA-NOW. - Activity Activity Orders: Up ad niecy - Services Needed Following services are medically necessary services: Nursing, Home Health Aide, Home Infusion - Transfer Medications Prescriptions: cefTRIAXone [Rocephin] 1,000 mg IVPB DAILY #7 vial Home Medications: Albuterol Sulfate [Albuterol Inhaler] 2 puff IH Q4HR PRN 04/25/15 [History] Citalopram [CeleXA] 20 mg PO QPM 04/25/15 [History] Levothyroxine [Synthroid] 175 mcg PO QAM 04/25/15 [History] Potassium Chloride 10 meq PO BID 04/25/15 [History] Amitriptyline [Elavil] 25 mg PO HS 02/07/16 [History] Albuterol Neb [Proventil Neb] 2.5 mg IH TID PRN 02/28/17 [History] amLODIPine [Norvasc] 5 mg PO DAILY #30 tablet 03/03/17 [Rx] Ciprofloxacin [Cipro] 500 mg PO BID #20 tablet 08/10/17 [Rx] Furosemide [Lasix] 40 mg PO DAILY 08/29/17 [History] cefTRIAXone [Rocephin] 1,000 mg IVPB DAILY #7 vial 09/01/17 [Rx] Allergies/Adverse Reactions: 3 Allergy/AdvReac Type Severity Reaction Status Date / Time cephalexin [From Keflex] Allergy Hives Verified 08/29/17 20:38 omeprazole AdvReac Nausea Verified 08/29/17 20:38 Certification: Further, I certify that my clinical findings support that this patient is homebound (i.e. absences from home require considerable and taxing effort and are for medical reasons or mu-ism services or infrequently or short duration when for other reasons) because: Homebound Reason: Patient requires assistance of a person or device to safely leave home Attestation: My signature below is to certify that this patient is under my care and that I, or nurse practitioner, or a physician's surgical first assistant working with me, has a face-to -face encounter with this patient.
[2017-09-01] MEDS ORDERED: cefTRIAXone 1,000 MG in Water for inj. (sterile) 10 ML IVP SCH (09:00)
[2017-09-01 12:02] VITALS: BP 134/74
== END 2017-09-01 13:33 | disposition home or self-care (01) | DRG 699 ==
LOC: 3BNU 16:28 → EMEROO 16:28 → 3BNU 21:47 → SUATTDRO 08-30 03:25
PROVIDERS: ADMIT Internal Medicine; ATTEND Internal Medicine

== ENCOUNTER 2018-07-12 14:20 | Observation (INO) ==
--- NOTE | 2018-07-12 14:46 | Emergency Department Note ---
Addendum entered and electronically signed by Hans Chung DO 07/12/18 21:30: 48-year-old female presents emergency department with concern for lower extremity edema. Patient states that this started last few days. Reports having some chest tightness has been intermittent in nature as well. No history of heart attack. Patient reports some right lower quadrant abdominal pain. Says that she has an ovarian cyst. States that it has been going on for quite some time, has been evaluated by pelvic ultrasound in recent history. Denies any fevers, cough, sputum production. ROS: Gen.: Denies fevers, chills Chest: Reports chest pain Abdomen: Reports right lower quadrant abdominal tenderness, denies nausea, vomiting Neuro: Denies any weakness, numbness, paresthesias Skin: Denies rashes Physical exam: In any acute distress Cardiovascular: Heart normal rate and rhythm, no murmurs Lungs: Clear to also place bilaterally Abdomen: Mild right lower quadrant abdominal tenderness to palpation, no peritoneal signs, no rebound, no guarding Lower extremities: 1+ pitting edema bilaterally,, neurovascular intact Neuro: Alert and oriented Psych: Normal mood Original Note: Disposition Clinical Impression: Elevated troponin Ovarian cyst Qualifiers: Laterality: right Qualified Code(s): N83.201 - Unspecified ovarian cyst, right side Disposition: Admitted As Inpatient Condition: Good Referrals: Jessica Garces MD [Primary Care Provider] - Forms: ED Satisfaction Letter, Work/School Release General Adult HPI - General Chief complaint: ED General Medical Stated complaint: Fluid Retention Time Seen by Provider: 07/12/18 14:27 Nursing Notes Reviewed: Yes Vital Signs Reviewed: Yes - History of Present Illness Pain Scale: 0 - Related Data Home Medications Medication Instructions Recorded Confirmed Albuterol Sulfate [Albuterol 2 puff IH Q4HR PRN 04/25/15 08/29/17 Inhaler] Citalopram [CeleXA] 20 mg PO QPM 04/25/15 08/29/17 Levothyroxine [Synthroid] 175 mcg PO QAM 04/25/15 08/29/17 Potassium Chloride 10 meq PO BID 04/25/15 08/29/17 Amitriptyline [Elavil] 25 mg PO HS 02/07/16 08/29/17 Albuterol Neb [Proventil Neb] 2.5 mg IH TID PRN 02/28/17 08/29/17 Furosemide [Lasix] 40 mg PO DAILY 08/29/17 08/29/17 Previous Rx's Medication Instructions Recorded amLODIPine [Norvasc] 5 mg PO DAILY #30 tablet 03/03/17 Ciprofloxacin [Cipro] 500 mg PO BID #20 tablet 08/10/17 cefTRIAXone [Rocephin] 1,000 mg IVPB DAILY #7 vial 09/01/17 Bisacodyl [Dulcolax] 10 mg RC DAILY #10 supp.rect 10/11/17 Polyethylene Glycol 3350 [MiraLAX 1 scoop PO DAILY #510 gm 10/11/17 Powder Bulk 17.9 Oz] Amoxicillin/Clavulanate [Augmentin] 500 mg PO TID #21 tablet 05/08/18 Cefdinir [Omnicef] 300 mg PO BID #14 capsule 05/09/18 Allergies Allergy/AdvReac Type Severity Reaction Status Date / Time cephalexin [From Keflex] Allergy Hives Verified 03/11/18 23:33 omeprazole AdvReac Nausea Verified 03/11/18 23:33 Past Medical History - Past Medical History Medical history: Reports: diabetes, hyperlipidemia, hypertension, thyroid disease, other Surgical history: Reports: orthopedic, other, ureteral stent, other Psychiatric history: Reports: anxiety, depression LADDER OPERATOR history: Reports: no LADDER OPERATOR history - Social History Smoking Status: Never smoker Smokeless Tobacco Status: No Alcohol use: Reports: occasionally Drug use: Reports: none Course Vital Signs Temperature 97.6 F 07/12/18 14:23 Pulse Rate 78 07/12/18 14:23 Respiratory Rate 18 07/12/18 14:23 Blood Pressure 159/105 07/12/18 14:23 O2 Sat by Pulse Oximetry 98 07/12/18 14:23 Temperature 97.6 F 07/12/18 14:48 Pulse Rate 83 07/12/18 18:30 Respiratory Rate 16 07/12/18 18:30 Blood Pressure 116/79 07/12/18 18:30 O2 Sat by Pulse Oximetry 99 07/12/18 18:30 Oxygen Delivery Oxygen Delivery Room Air Medical Decision Making - [facility] Narrative Medical decision making narrative: 40-year-old female presented to emergency department with concern for lower extremity edema. Patient reports that she has had a little bit chest tightness recently, none today. EKG did not reveal any evidence of ischemic ST changes. Troponin was elevated at 0.04. She has never had an elevated troponin in the past. Chest x-ray did not reveal any cardiopulmonary abnormality. We have performed CT scan of abdomen and pelvis as abdomen was mildly distended and there was some mild right lower quadrant tenderness. Revealed suspicious is stable cystic appearing lesion in the right adnexa that is concern for neoplasm. After speaking to the patient more, and she had a recent pelvic ultrasound performed 4 days ago. And she was told that this ultrasound repeated in 3 months. She has close follow-up regarding this. States that the abdominal tenderness has been unchanged since she had the ultrasound performed. Do not suspect ovarian torsion at this time as this pain is the same as when she had a previous ultrasound. Patient hemodynamically stable not in any acute distress and not actively having any chest pain at time of admission. Chest X-Ray 07/12/18 14:46 IMPRESSION: No acute cardiopulmonary disease. D/ / Yung Mendoza MD / Yung Mendoza MD Interpreting Provider: Yung Mendoza MD Abdomen/Pelvis CT 07/12/18 15:16 IMPRESSION: 1. Stable appearance of the cystic appearing lesion associated with the right adnexa concerning for neoplasm. Surgical consultation is recommended. 2. Other stable findings, as above including nonobstructing right renal calculi and diffuse hepatic steatosis. D/ / Ariel Cutler / Ariel Cutler Interpreting Provider: Ariel Cutler - Lab Data Result diagrams: 07/12/18 14:58 Lab Results 07/12/18 07/12/18 07/12/18 Range/Units 14:58 14:58 14:58 Sodium 138 (136-145) mEq/L Potassium 3.3 L (3.5-5.1) mEq/L Chloride 103 (98-107) mEq/L Carbon Dioxide 26 (23-29) mEq/L BUN 7 (6-20) mg/dL Creatinine 0.68 (0.60-1.20) mg/dL Est GFR ( Amer) > 60 (> 60) Est GFR (Non-Af Amer) > 60 (> 60) BUN/Creatinine Ratio 10 (6-26) Glucose 98 (70-105) mg/dL Calculated Osmolality 284 (280-300) Calcium 9.0 (8.6-10.3) mg/dL Total Bilirubin 0.4 (0.3-1.0) mg/dL AST 14 (13-39) Units/L ALT 12 (7-52) Units/L Alkaline Phosphatase 123 H (34-104) Units/L Troponin I 0.04 H* (< 0.04) ng/mL B-Natriuretic Peptide 64 (Less than 100) pg/mL Serum Total Protein 7.8 (6.4-8.9) g/dL Albumin 4.0 (3.5-5.7) g/dL Globulin 3.8 H (2.4-3.5) g/dL Albumin/Globulin Ratio 1.1 (1.1-2.2) Lipase 19 (11-82) Units/L TSH 3.996 (0.340-5.600) mcIU/mL - EKG Data EKG #1 EKG attestation: Yes I reviewed and interpreted this EKG. EKG results narrative: 14:54 Heart rate 67 bpm, AR interval 147 ms, QRS duration 93 ms, QT 442 ms, normal axis. Sinus rhythm ventricular rate of [address] changes on this EKG.
[2018-07-12] MEDS ORDERED: Isovue-370 500 ML INFUS..BTL IV ONE (15:16)
[2018-07-12 15:36] LABS: Alanine Aminotransferase 12 Units/L (7-52); Albumin/Globulin Ratio 1.1 (1.1-2.2); Alkaline Phosphatase 123 Units/L (34-104); Aspartate Amino Transferase 14 Units/L (13-39); BUN/Creatinine Ratio 10 (6-26); Bilirubin,Total 0.4 mg/dL (0.3-1.0); Blood Urea Nitrogen 7 mg/dL (6-20); Carbon Dioxide 26 mEq/L (23-29); Chloride 103 mEq/L (98-107); Globulin 3.8 g/dL (2.4-3.5); Glucose 98 mg/dL (70-105); Osmolality,Calculated 284 (280-300); Potassium 3.3 mEq/L (3.5-5.1); Sodium 138 mEq/L (136-145); Total Protein 7.8 g/dL (6.4-8.9); eGFR For Non-African Americans > 60 (> 60)
[2018-07-12 15:40] LABS: Troponin I 0.04 ng/mL (< 0.04)
[2018-07-12 15:49] LABS: Thyroid Stimulating Hormone 3.996 mcIU/mL (0.340-5.600)
--- NOTE | 2018-07-12 18:02 | Emergency Department Note ---
Disposition Clinical Impression: Elevated troponin Disposition: Admitted As Inpatient Condition: Good Forms: ED Satisfaction Letter, Work/School Release General Adult HPI - General Chief complaint: ED General Medical Stated complaint: Fluid Retention Time Seen by Provider: 07/12/18 14:27 Source: patient Limitations: no limitations - History of Present Illness Pain Scale: 2 - Related Data Home Medications Medication Instructions Recorded Confirmed Albuterol Sulfate [Albuterol 2 puff IH Q4HR PRN 04/25/15 08/29/17 Inhaler] Citalopram [CeleXA] 20 mg PO QPM 04/25/15 08/29/17 Levothyroxine [Synthroid] 175 mcg PO QAM 04/25/15 08/29/17 Potassium Chloride 10 meq PO BID 04/25/15 08/29/17 Amitriptyline [Elavil] 25 mg PO HS 02/07/16 08/29/17 Albuterol Neb [Proventil Neb] 2.5 mg IH TID PRN 02/28/17 08/29/17 Furosemide [Lasix] 40 mg PO DAILY 08/29/17 08/29/17 Previous Rx's Medication Instructions Recorded amLODIPine [Norvasc] 5 mg PO DAILY #30 tablet 03/03/17 Ciprofloxacin [Cipro] 500 mg PO BID #20 tablet 08/10/17 cefTRIAXone [Rocephin] 1,000 mg IVPB DAILY #7 vial 09/01/17 Bisacodyl [Dulcolax] 10 mg RC DAILY #10 supp.rect 10/11/17 Polyethylene Glycol 3350 [MiraLAX 1 scoop PO DAILY #510 gm 10/11/17 Powder Bulk 17.9 Oz] Amoxicillin/Clavulanate [Augmentin] 500 mg PO TID #21 tablet 05/08/18 Cefdinir [Omnicef] 300 mg PO BID #14 capsule 05/09/18 Allergies Allergy/AdvReac Type Severity Reaction Status Date / Time cephalexin [From Keflex] Allergy Hives Verified 03/11/18 23:33 omeprazole AdvReac Nausea Verified 03/11/18 23:33 Past Medical History - Past Medical History Medical history: Reports: diabetes, hyperlipidemia, hypertension, thyroid diseas e, other Surgical history: Reports: orthopedic, other, ureteral stent, other Psychiatric history: Reports: anxiety, depression DIRECTOR OF PARTNERSHIPS history: Reports: no DIRECTOR OF PARTNERSHIPS history - Social History Smoking Status: Never smoker Smokeless Tobacco Status: No Alcohol use: Reports: occasionally Drug use: Reports: none Physical Exam - General Limitations: no limitations General appearance: alert, in no apparent distress Course Vital Signs Temperature 97.6 F 07/12/18 14:23 Pulse Rate 78 07/12/18 14:23 Respiratory Rate 18 07/12/18 14:23 Blood Pressure 159/105 07/12/18 14:23 O2 Sat by Pulse Oximetry 98 07/12/18 14:23 Temperature 97.6 F 07/12/18 14:48 Pulse Rate 71 07/12/18 17:49 Respiratory Rate 16 07/12/18 17:49 Blood Pressure 132/101 07/12/18 17:49 O2 Sat by Pulse Oximetry 100 07/12/18 17:49 Oxygen Delivery Oxygen Delivery Room Air Medical Decision Making - Lab Data Result diagrams: 07/12/18 14:58 Lab Results 07/12/18 07/12/18 07/12/18 Range/Units 14:58 14:58 14:58 Sodium 138 (136-145) mEq/L Potassium 3.3 L (3.5-5.1) mEq/L Chloride 103 (98-107) mEq/L Carbon Dioxide 26 (23-29) mEq/L BUN 7 (6-20) mg/dL Creatinine 0.68 (0.60-1.20) mg/dL Est GFR ( Amer) > 60 (> 60) Est GFR (Non-Af Amer) > 60 (> 60) BUN/Creatinine Ratio 10 (6-26) Glucose 98 (70-105) mg/dL Calculated Osmolality 284 (280-300) Calcium 9.0 (8.6-10.3) mg/dL Total Bilirubin 0.4 (0.3-1.0) mg/dL AST 14 (13-39) Units/L ALT 12 (7-52) Units/L Alkaline Phosphatase 123 H (34-104) Units/L Troponin I 0.04 H* (< 0.04) ng/mL B-Natriuretic Peptide 64 (Less than 100) pg/mL Serum Total Protein 7.8 (6.4-8.9) g/dL Albumin 4.0 (3.5-5.7) g/dL Globulin 3.8 H (2.4-3.5) g/dL Albumin/Globulin Ratio 1.1 (1.1-2.2) Lipase 19 (11-82) Units/L TSH 3.996 (0.340-5.600) mcIU/mL Attestation Statement - Attestation Attestation: I examined this patient and my medical decision-making was reviewed with the Resident Physician. I agree with the documented findings, disposition and treatment plan as described except to the extent set forth below. 48 Year old female presents to the ED with complaints of fluid retnetion and has an elevated troponoin and otherwise unremarkable labs. Patient has CT pending. But likelly this is new onset CHF although the bnp is not elevated. We will admit ot medicne once CT scan has been results to medicine
[2018-07-12] MEDS ORDERED: Aspirin 81 MG TAB.CHEW PO STA (19:13)
[2018-07-12] MEDS ORDERED: Naloxone 0.4 MG/ML INJ IVP PRN (23:36)
[2018-07-12] MEDS ORDERED: Acetaminophen 325 MG TABLET PO PRN (23:36)
[2018-07-12] MEDS ORDERED: D5% in Water 1,000 ML IVC PRN (23:39)
[2018-07-12] MEDS ORDERED: *HR* Dextrose 50 % in Water (Syg) 50 ML SYRINGE IVP PRN (23:39)
[2018-07-12] MEDS ORDERED: Dextrose Gel 15 GM/37.5 ML TUBE PO PRN ×2 (23:39)
--- NOTE | 2018-07-12 23:44 | Internal Med History&Physical ---
Date of Encounter: 07/12/18 Time of Encounter: 23:20 Internal Medicine - H&P: HPI Chief complaint: Chest pain Admitted From: Emergency Dept Plans for Post Hospital Care: Home History of present illness: Ms. Chapa is a 48 year old female Patient presented to the emergency room with intermittent chest pain. She has been experiencing this on and off about once every other day. Pain is in center of her chest without radiation. She has a home health nurse due to her history of spina bifida and artificial bladder. She has a catheter that needs to be changed every 2 weeks. Over the last 2 weeks she has put on 10 pounds, her nurse stated that she thought she was retaining water. Prior to this she was losing weight, but has been on a Weight Wat[employer] diet. She has never had any history of heart problems in the past, but does have diabetes. She denies nausea and vomiting, but has had an episode of diarrhea 2 days ago. Emergency room they for some reason did not order a CBC, but BMP was within normal limits. Patient had elevated troponin of 0.04. Chest x-ray showed no acute cardiopulmonary disease. Abdominal CT was also ordered and showed a cystic lesion in the right adnexa which was concerning for neoplasm. There is also hepatic steatosis seen. She was admitted for further management and workup for elevated troponin. Upon my assessment patient states that she has no longer felt any chest pain and has no complaints. She states that she is never had any issues with her heart before, but does have family members that have had CHF in the past. She is diabetic, and has neuropathy from this. She also states that last night she was out at the pumpkin show and felt numbness in her face but states at the time it was very cold out and she quickly regained sensation in her face after getting to her car. Past Med Surg Social Fam HX - Past Medical History Medical history: diabetes, hyperlipidemia, hypertension, thyroid disease, other Additional medical history: spina bifida. type II diabetic. Hypothyroidism Psychiatric history: anxiety, depression - Past Surgical History Surgical History: orthopedic, other, ureteral stent, other Additional surgical history: spina bifida surgery, 11 surgeries for suprapubic catheter, BLE surgery - Social History Smoking Status: Never smoker Smokeless Tobacco Status: No Alcohol use: occasionally Drug use: none - Family History Mother Living Status: Still Living Hx Family Cardiac Disorders: Yes (Coronary artery disease) Hx Family Endocrine Disorder: Yes (Hypothyroidism) Hx Family Neuromuscular Disorders: Yes (Alzeihmers, dementia) Hx Family Neurologic Disorders: Yes (Dementia) Father Family Member Ethnicity: Non- Living Status: Age at : 65 Hx Family Cardiac Disorders: Yes (CHF) Hx Family Respiratory Disorders: Yes (Asthma, Emphysema) Hx Family Cancer: Yes (Testicular, Lung) Hx Family GI Disorders: No Hx Family Endocrine Disorder: Yes (DM) Brother Hx Family Cardiac Disorders: Yes (Hypertension and hyperlipidemia) Hx Family Endocrine Disorder: Yes (Diabetes mellitus) Hx Family Neurologic Disorders: Yes (Spina bifida) Internal Medicine - H&P: Meds Levothyroxine [Synthroid] 175 mcg PO QAM 04/25/15 [History] Amitriptyline [Elavil] 25 mg PO HS 02/07/16 [History] Albuterol Neb [Proventil Neb] 2.5 mg IH TID PRN 02/28/17 [History] Furosemide [Lasix] 40 mg PO DAILY 08/29/17 [History] Bisacodyl [Dulcolax] 10 mg RC DAILY #10 supp.rect 10/11/17 [Rx] Polyethylene Glycol 3350 [MiraLAX Powder Bulk 17.9 Oz] 1 scoop PO DAILY #510 gm 10/11/17 [Rx] Citalopram Hydrobromide [Citalopram HBr] 20 mg PO 07/13/18 [History] Gabapentin [Neurontin] 100 mg PO 07/13/18 [History] Lisinopril [Zestril] 5 mg PO DAILY 07/13/18 [History] Potassium Chloride [Klor-Con 10] 10 meq PO BID 07/13/18 [History] Allergy/AdvReac Type Severity Reaction Status Date / Time cephalexin [From Keflex] Allergy Hives Verified 03/11/18 23:33 omeprazole AdvReac Nausea Verified 03/11/18 23:33 All Systems PM: A 10-system review of systems was performed and is negative for pertinent findings except as documented above in the HPI. - Constitutional Vitals: Temp Pulse Resp BP Pulse Ox 98.0 F 60 15 110/73 94 07/12/18 23:07 07/12/18 23:07 07/12/18 23:07 07/12/18 23:07 07/12/18 23:07 General appearance: Present: cooperative, A&O X 3, pleasant, no acute distress, answers questions appropriately Exam: As above - Head Head exam: Present: normal inspection - Eye Eye exam: Present: EOMI, normal appearance - Neck Neck exam general surgery: Present: full ROM - Respiratory Respiratory exam: Present: CTAB. Absent: chest wall tenderness, decreased breath sounds, respiratory distress, wheezes - Cardiovascular Cardiovascular exam: Present: RRR. Absent: diastolic murmur, systolic murmur - GI/Abdominal GI/Abdominal exam: Present: normal bowel sounds, soft. Absent: tenderness - Extremities Exam Extremities exam: Present: pedal edema, warm, radial pulses palpable and symmetrical. Absent: calf tenderness, tenderness - Neurological Exam Neurological exam: Present: no focal deficits, strengths equal and symetr throughout. Absent: motor sensory deficit, facial droop, speech deficit - Skin Skin exam: Present: dry, normal color, warm Additional comments: Sachi infection around catheter site Internal Med - H&P Results - Labs CBC & Chem 7: 07/13/18 00:40 07/13/18 00:40 Labs: BMP 07/12/18 14:58 Sodium 138 Potassium 3.3 L Chloride 103 Carbon Dioxide 26 BUN 7 Creatinine 0.68 Glucose 98 Calcium 9.0 Cardiac Enzymes 07/12/18 Range/Units 14:58 Troponin I 0.04 H* (< 0.04) ng/mL Liver Function 07/12/18 Range/Units 14:58 Total Bilirubin 0.4 (0.3-1.0) mg/dL AST 14 (13-39) Units/L ALT 12 (7-52) Units/L Alkaline Phosphatase 123 H (34-104) Units/L Albumin 4.0 (3.5-5.7) g/dL - Impressions ITS Impressions Chest X-Ray 07/12/18 14:46 IMPRESSION: No acute cardiopulmonary disease. D/ / Yung Mendoza MD / Yung Mendoza MD Interpreting Provider: Yung Mendoza MD Abdomen/Pelvis CT 07/12/18 15:16 IMPRESSION: 1. Stable appearance of the cystic appearing lesion associated with the right adnexa concerning for neoplasm. Surgical consultation is recommended. 2. Other stable findings, as above including nonobstructing right renal calculi and diffuse hepatic steatosis. D/ / Ariel Cutler / Ariel Cutler Interpreting Provider: Ariel Cutler - Assessment and plan (1) Elevated troponin Current Visit: Yes Status: Acute Assessment and plan: Troponin 0.04 in the emergency room. Patient denies chest pain, but has had intermittent chest pain over the last several weeks. Denies radiation. 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 (2) Lower extremity edema Current Visit: Yes Status: Acute Assessment and plan: Continue lasix BID (3) Hypothyroid Current Visit: No Status: Chronic Assessment and plan: Continue home meds Qualifiers: Hypothyroidism type: unspecified Qualified Code(s): E03.9 - Hypothyroidism, unspecified (4) Diabetes mellitus Current Visit: No Status: Chronic Qualifiers: Diabetes mellitus type: type 2 Diabetes mellitus fci insulin use: unspecified fci insulin use status Diabetes mellitus complication status: with unspecified complications Qualified Code(s): E11.8 - Type 2 diabetes mellitus with unspecified complications (5) Spina bifida Current Visit: No Status: Chronic Assessment and plan: Chronic, has artificial bladder, requiring frequent catheter changes. Qualifiers: Spinal region: unspecified Presence of hydrocephalus: without hydrocephalus Qualified Code(s): Q05.9 - Spina bifida, unspecified (6) Ovarian cyst Current Visit: Yes Status: Acute Assessment and plan: As evidenced by patient's abdominal CT, she has a cystic lesion in the right adnexa which was concerning for neoplasm. Patient will likely follow up outpatient for this with PRODUCT SPECIAL[facility] and/or oncology Qualifiers: Laterality: right Qualified Code(s): N83.201 - Unspecified ovarian cyst, right side (7) DVT prophylaxis Current Visit: No Status: Acute Assessment and plan: SCDs - Time Spent With Patient Total time spent is greater than 50% in coordination of care (as documented) at patient's floor/unit and/or counseling patient: Greater than 35 minutes
[2018-07-13] MEDS: Nystatin POWDER 30 GM BOTTLE TP SCH ×3 (00:30→20:34)
[2018-07-13 01:21] LABS: Hematocrit 38.8 % (35.3-44.9); Hemoglobin 12.2 g/dL (11.5-15.4); Mean Corpuscular HGB Conc 31.4 g/dL (31.6-35.5); Mean Corpuscular Hemoglobin 25.4 pg (28.0-33.3); Mean Corpuscular Volume 80.8 fL (83.0-100.0); Mean Platelet Volume 11.3 fL (9.4-12.4); Platelet Count 297 K/mcL (140-400); Red Cell Distribution Width 15.5 % (11.5-14.5)
[2018-07-13 01:39] LABS: BUN/Creatinine Ratio 14 (6-26); Blood Urea Nitrogen 9 mg/dL (6-20); Calcium 9.2 mg/dL (8.6-10.3); Carbon Dioxide 25 mEq/L (23-29); Chloride 103 mEq/L (98-107); Glucose 100 mg/dL (70-105); Osmolality,Calculated 283 (280-300); Potassium 3.3 mEq/L (3.5-5.1); Sodium 137 mEq/L (136-145); eGFR For Non-African Americans > 60 (> 60)
[2018-07-13] MEDS: Insulin LISPRO 300 UNITS/3 ML VIAL SQ SCH ×3 (08:54→16:32)
[2018-07-13] MEDS: Furosemide 20 MG/2 ML VIAL IVP SCH ×2 (08:54→16:38)
--- NOTE | 2018-07-13 10:51 | Internal Med Progress Note ---
Hospitalist Progress Note - Encounter Date of Encounter: 07/13/18 Time of Encounter: 10:49 - Subjective Interval History: Patient with history of spinal bifida with artificial bladder, obesity, diabetes, high cholesterol, hypertension and hypothyroidism patient was admitted with recurrent chest pain and. Troponin was mildly elevated at 0.04 follow-up evaluation today patient has remained chest pain-free repeat troponin 0.03 which is within normal limits will order echo and a nuclear stress test for further evaluation. - Exam Vitals: Temp Pulse Resp BP Pulse Ox 97.3 F L 76 16 127/91 98 07/13/18 06:50 07/13/18 06:50 07/13/18 06:50 07/13/18 06:50 07/13/18 06:50 Exam: As above - Assessment and Plan (1) Chest pain Current Visit: No Status: Acute Assessment and Plan: Chest pain in a patient with multiple cardiac risk factors diabetes, hyperten jamshid, high cholesterol and obesity troponin is mildly elevated but not consistent with non-STEMI need further evaluation will start with nuclear stress test and also obtain 2-D echo to look at LV function (2) Hypothyroid Current Visit: No Status: Chronic Assessment and Plan: Continue home medication (3) Diabetes mellitus Current Visit: No Status: Chronic Assessment and Plan: Continue home medication and sliding scale (4) Uncontrolled hypertension Current Visit: No Status: Chronic Assessment and Plan: Chronic and well controlled (5) Obesity Current Visit: No Status: Chronic (6) Spina bifida Current Visit: No Status: Chronic (7) Elevated troponin Current Visit: Yes Status: Acute Assessment and Plan: Not consistent with Non-STEMI (8) Ovarian cyst Current Visit: Yes Status: Acute Assessment and Plan: 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 - Time Spent with Patient Total time spent is greater than 50% in coordination of care (as documented) at patient's floor/unit and/or counseling patient: Internal Medicine: Result - Labs CBC & Chem 7: 07/13/18 00:40 07/13/18 00:40 Labs: Short CBC 07/13/18 Range/Units 00:40 WBC 8.3 (4.3-11.1) K/mcL Hgb 12.2 (11.5-15.4) g/dL Hct 38.8 (35.3-44.9) % Plt Count 297 (140-400) K/mcL BMP 07/12/18 07/13/18 14:58 00:40 Sodium 138 137 Potassium 3.3 L 3.3 L Chloride 103 103 Carbon Dioxide 26 25 BUN 7 9 Creatinine 0.68 0.66 Glucose 98 100 Calcium 9.0 9.2 Cardiac Enzymes 07/12/18 07/13/18 Range/Units 14:58 00:40 Troponin I 0.04 H* < 0.03 (< 0.04) ng/mL Liver Function 07/12/18 Range/Units 14:58 Total Bilirubin 0.4 (0.3-1.0) mg/dL AST 14 (13-39) Units/L ALT 12 (7-52) Units/L Alkaline Phosphatase 123 H (34-104) Units/L Albumin 4.0 (3.5-5.7) g/dL - Impressions Impressions Chest X-Ray 07/12/18 14:46 IMPRESSION: No acute cardiopulmonary disease. D/ / Yung Mendoza MD / Yung Mendoza MD Interpreting Provider: Yung Mendoza MD Abdomen/Pelvis CT 07/12/18 15:16 IMPRESSION: 1. Stable appearance of the cystic appearing lesion associated with the right adnexa concerning for neoplasm. Surgical consultation is recommended. 2. Other stable findings, as above including nonobstructing right renal calculi and diffuse hepatic steatosis. 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
[2018-07-13] MEDS ORDERED: Regadenoson 0.4 MG/5 ML SYRINGE IVP ONE (11:41)
[2018-07-13] MEDS ORDERED: Perflutren Lipid Microsphere 1.3 ML in 0.9 % Sodium Chloride 8.7 ML IVP ONE (19:20)
[2018-07-13] MEDS ORDERED: Insulin LISPRO 300 UNITS/3 ML VIAL SQ SCH (21:00)
[2018-07-14] MEDS: Insulin LISPRO 300 UNITS/3 ML VIAL SQ SCH ×2 (09:31→11:55)
[2018-07-14] MEDS: Furosemide 20 MG/2 ML VIAL IVP SCH (09:33)
[2018-07-14] MEDS: Nystatin POWDER 30 GM BOTTLE TP SCH (09:33)
--- NOTE | 2018-07-14 11:28 | Discharge Summary ---
- NOTES TO OUTPATIENT PROVIDER Notes to Outpatient Provider: Follow-up with PCP as outpatient-patient does follow with oncology at the [facility] for cystic lesion and right adnexa-states she does have an appointment for follow-up Orders not resulted at time of discharge: Pending orders 07/13/18 10:48 NM angela perf SPECT multi [NM] Routine 07/14/18 10:23 Chem 7 [Basic Metabolic Panel] Routine Date of Encounter: 07/14/18 Time of Encounter: 11:19 - Discharge Diagnosis (1) Elevated troponin Priority: Secondary Status: Acute (2) Ovarian cyst Priority: Secondary Status: Acute Qualifiers: Laterality: right Qualified Code(s): N83.201 - Unspecified ovarian cyst, right side (3) Chest pain Priority: Primary Status: Acute Qualifiers: Chest pain type: unspecified Qualified Code(s): R07.9 - Chest pain, unspecified Hospital course: Ms. Chapa is a 48 year old female passed with a history of diabetes hyperlipidemia hypertension thyroid disease spina bifida. Patient presented to emergency department after experiencing intermittent chest pain, describing pain as tightness nonradiating has been occurring off and on. She also had complaints of some lower extremity swelling as well as right lower quadrant abdominal pain. EKG did not reveal any ischemic ST changes troponin was slightly elevated at 0.04 which trended downward chest x-ray did not reveal any acute cardiopulmonary abnormalities. CT of abdomen and pelvis did show stable cystic appearing lesion in the right adnexa concerning for neoplasm- she recently underwent a pelvic ultrasound 4 days prior and does follow with the [place] as an outpatient. Echo was completed which did not show LV 60-65% normal LV chamber size wall thickness and function mild left ventricular diastolic dysfunction. She was diuresed lower extremity swelling did improve she did have some hypokalemia which was replaced. She did undergo a cardiac stress test which was negative for any ischemia or infarct. She did not have any chest pain or shortness of breath during the admission. I advised patient to follow up with her primary care provider as well as with the [facility] concerning cystic lesion. Patient verbalized understanding She is hemodynamically stable at this time is ready for discharge. Discharge discussed with: patient - Time Spent with Patient Total time spent providing and/or coordinating discharge services: - Discharge Medications Home Medications: Levothyroxine [Synthroid] 175 mcg PO QAM 04/25/15 [History] Amitriptyline [Elavil] 25 mg PO HS 02/07/16 [History] Furosemide [Lasix] 40 mg PO DAILY 08/29/17 [History] Citalopram Hydrobromide [Citalopram HBr] 20 mg PO DAILY 07/13/18 [History] Gabapentin [Neurontin] 100 mg PO DAILY 07/13/18 [History] Potassium Chloride [Klor-Con 10] 10 meq PO BID 07/13/18 [History] Allergies/Adverse Reactions: Allergy/AdvReac Type Severity Reaction Status Date / Time cephalexin [From Keflex] Allergy Hives Verified 03/11/18 23:33 omeprazole AdvReac Nausea Verified 03/11/18 23:33 Date of admission: 07/12/18 19:26 Primary care physician: Jessica Garces Discharging clinician: Flor Palomo Anticipated date of discharge: 07/14/18 - Constitutional Vitals: Temp Pulse Resp BP Pulse Ox 98.2 F 73 18 112/70 94 07/14/18 06:58 07/14/18 06:58 07/14/18 06:58 07/14/18 06:58 07/14/18 06:58 General appearance: Present: cooperative, A&O X 3, pleasant, no acute distress, answers questions appropriately Exam: see below - Head Head exam: Present: atraumatic, normocephalic - Eye Eye exam: Present: PERRL, conjuntiva pink, sclera anicteric Pupils: Present: PERRL - Neck Neck exam general surgery: Present: supple, trachea midline. Absent: lymphadenopathy - Respiratory Respiratory exam: Present: CTAB. Absent: accessory muscle use, rales, rhonchi, wheezes - Cardiovascular Cardiovascular exam: Present: RRR, +S1, +S2. Absent: diastolic murmur, gallop, rubs, systolic murmur - GI/Abdominal GI/Abdominal exam: Present: normal bowel sounds, soft, no peritoneal signs. Absent: distended, tenderness - Extremities Exam Extremities exam: Present: warm, radial pulses palpable and symmetrical. Absent: calf tenderness, cyanotic, pedal edema - Neurological Exam Neurological exam: Present: CN II-XII intact, oriented X3, no focal deficits. Absent: pronater drift, facial droop, speech deficit - Skin Skin exam: Present: dry, intact - Patient Status Disposition: Home, Self-Care Condition: Good Functional capacity at discharge: uses cane/walker Overall status at discharge: patient is back to baseline - Discharge Instructions Follow Up With: Jessica Garces MD [Primary Care Provider] - 07/15/18 1:45 pm - Diet and Activity Activity: resume usual activities as tolerated Diet: advance to your usual diet
[2018-07-14 11:37] VITALS: BP 102/69
[2018-07-14 11:47] LABS: BUN/Creatinine Ratio 18 (6-26); Blood Urea Nitrogen 12 mg/dL (6-20); Carbon Dioxide 21 mEq/L (23-29); Chloride 102 mEq/L (98-107); Glucose 104 mg/dL (70-105); Osmolality,Calculated 280 (280-300); Potassium 3.7 mEq/L (3.5-5.1); Sodium 135 mEq/L (136-145); Troponin I < 0.03 ng/mL (< 0.04); eGFR For Non-African Americans > 60 (> 60)
--- NOTE | 2018-07-14 14:05 | Physician Discharge Referral ---
Home Health/Hosp Referral Info Transfer to: Home Health Attending Provider: Flor Palomo Provider in Charge Post Discharge: PCP - Diagnosis (1) Elevated troponin Priority: Secondary Status: Acute (2) Ovarian cyst Priority: Secondary Status: Acute (3) Chest pain Priority: Primary Status: Acute - Respiratory Orders Smoking Cessation: Smoking cessation has been advised. For more information, call the [place] Tobacco Quit Line at 0-098-ESOS-NOW. - Diet/Nutrition Diet/Nutrition Orders: Regular - Activity Activity Orders: Ambulate - Services Needed Following services are medically necessary services: Nursing - Transfer Medications Home Medications: Levothyroxine [Synthroid] 175 mcg PO QAM 04/25/15 [History] Amitriptyline [Elavil] 25 mg PO HS 02/07/16 [History] Furosemide [Lasix] 40 mg PO DAILY 08/29/17 [History] Citalopram Hydrobromide [Citalopram HBr] 20 mg PO DAILY 07/13/18 [History] Gabapentin [Neurontin] 100 mg PO DAILY 07/13/18 [History] Potassium Chloride [Klor-Con 10] 10 meq PO BID 07/13/18 [History] Allergies/Adverse Reactions: Allergy/AdvReac Type Severity Reaction Status Date / Time cephalexin [From Keflex] Allergy Hives Verified 03/11/18 23:33 omeprazole AdvReac Nausea Verified 03/11/18 23:33 Certification: Further, I certify that my clinical findings support that this patient is homebound (i.e. absences from home require considerable and taxing effort and are for medical reasons or sikh services or infrequently or short duration when for other reasons) because: Homebound Reason: Patient requires assistance of a person or device to safely leave home Attestation: My signature below is to certify that this patient is under my care and that I, or nurse practitioner, or a physician's construction assistant working with me, has a face -to-face encounter with this patient.
--- NOTE | 2018-07-17 15:30 | Electrocardiograph Report ---
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
== END 2018-07-14 15:35 | disposition home or self-care (01) ==
LOC: EMEROOARM 14:20 → 3BNU 14:20
PROVIDERS: ADMIT Internal Medicine Nephrology; ATTEND Internal Medicine Nephrology

== ENCOUNTER 2019-09-04 19:57 | Inpatient (IN) ==
[2019-09-04] MEDS ORDERED: Acetaminophen 325 MG TABLET PO ONE (20:17)
[2019-09-04] MEDS ORDERED: 0.9 % Sodium Chloride 3,000 ML ONE (20:18)
[2019-09-04] MEDS ORDERED: Ertapenem 1,000 MG in 0.9 % Sodium Chloride Mini Bag 100 ML IVPB ONE (20:18)
[2019-09-04] MEDS ORDERED: Isovue-370 500 ML BOTTLE IVP ONE (20:23)
[2019-09-04] MEDS: 0.9 % Sodium Chloride 1,000 ML IVC SCH (20:24)
[2019-09-04 20:42] LABS: Basophils # 0.1 K/mcL (0.0-0.2); Basophils % 0.5 %; Eosinophils % 0.2 %; Hematocrit 37.4 % (35.3-44.9); Hemoglobin 12.2 g/dL (11.5-15.4); Immature Granulocytes % 0.3 % (0-4); Lymphocytes # 1.9 K/mcL (0.6-4.6); Lymphocytes % 14.5 %; Mean Corpuscular HGB Conc 32.6 g/dL (31.6-35.5); Mean Corpuscular Hemoglobin 24.3 pg (28.0-33.3); Mean Corpuscular Volume 74.4 fL (83.0-100.0); Monocytes # 0.9 K/mcL (0.0-1.3); Monocytes % 7.1 %; Neutrophils # 10.2 K/mcL (1.6-8.9); Platelet Count 331 K/mcL (140-400); Red Blood Count 5.03 M/mcL (3.82-4.97); Red Cell Distribution Width 17.3 % (11.5-14.5); Segmented Neutrophils % 77.4 %; White Blood Count 13.1 K/mcL (4.3-11.1)
[2019-09-04 20:47] LABS: INR 1.2; Prothrombin Time 13.9 Seconds (9.4-12.1)
[2019-09-04 20:49] LABS: Activated Partial Thrombo Time 34.3 Seconds (26.0-36.0)
[2019-09-04 21:06] LABS: Alanine Aminotransferase 11 Units/L (7-52); Albumin 4.1 g/dL (3.5-5.7); Albumin/Globulin Ratio 0.9 (1.1-2.2); Alkaline Phosphatase 126 Units/L (34-104); Aspartate Amino Transferase 13 Units/L (13-39); BUN/Creatinine Ratio 17 (6-26); Bilirubin,Direct 0.1 mg/dL (0.0-0.2); Bilirubin,Indirect 0.3 mg/dL (0.0-1.0); Bilirubin,Total 0.4 mg/dL (0.3-1.0); Blood Urea Nitrogen 13 mg/dL (6-20); Calcium 9.5 mg/dL (8.6-10.3); Carbon Dioxide 22 mEq/L (23-29); Chloride 99 mEq/L (98-107); Globulin 4.7 g/dL (2.4-3.5); Glucose 99 mg/dL (70-105); Lipase 58 Units/L (11-82); Magnesium 1.9 mg/dL (1.6-2.6); Osmolality,Calculated 278 (280-300); Phosphorous 2.3 mg/dL (2.7-4.5); Potassium 3.3 mEq/L (3.5-5.1); Sodium 134 mEq/L (136-145); Total Protein 8.8 g/dL (6.4-8.9); Troponin I < 0.03 ng/mL (< 0.04); eGFR For African Americans > 60 (> 60); eGFR For Non-African Americans > 60 (> 60)
[2019-09-04 21:25] LABS: Bilirubin,Urine Negative (Negative); Blood,Urine Small (Negative); Clarity,Urine Cloudy (Clear); Color,Urine Yellow (Yellow); Glucose,Urine (UA) Normal (Normal); Ketones,Urine Negative (Negative); Leukocyte Esterase,Urine Large (Negative); Nitrite,Urine Positive (Negative); PH,Urine 8.5 pH Units (5.0-8.0); Protein,Urine 100 mg/dL (Neg-Trace); Specific Gravity,Urine 1.017 (1.010-1.025); Urobilinogen,Urine Normal (Normal)
[2019-09-04 21:28] LABS: Bacteria,Urine Many per hpf (None-Few); RBC,Urine 0-3 per hpf (0-3); Squamous Epithelial Cell,Urine Many per lpf (None-Few); WBC,Urine 50-100 per hpf (0-3)
[2019-09-04 22:24] LABS: ABG Base Excess -1 mEq/L (-2 to 3); ABG HCO3 22 mEq/L (21-27); ABG Oxygen Saturation 96 % (95-98); ABG PCO2 32 mmHg (35-45); ABG PH 7.45 pH Units (7.32-7.45); ABG PO2 80 mmHg (85-104); ABG TCO2 23 mEq/L (20-26)
[2019-09-04] MEDS ORDERED: Ondansetron 4 MG/2 ML VIAL IVP PRN (23:37)
[2019-09-04] MEDS ORDERED: Naloxone 0.4 MG/ML INJ IVP PRN (23:37)
[2019-09-04] MEDS ORDERED: 0.9 % Sodium Chloride 500 ML IVC ONE (23:40)
[2019-09-04] MEDS ORDERED: Gabapentin 100 MG CAPSULE PO PRN (23:41)
[2019-09-04] MEDS ORDERED: 0.9 % Sodium Chloride 1,000 ML IVC SCH (23:45)
[2019-09-05] MEDS ORDERED: Dextrose Gel 15 GM/37.5 ML TUBE PO PRN ×2 (00:47)
[2019-09-05] MEDS ORDERED: *HR* Dextrose 50 % in Water (Syg) 50 ML SYRINGE IVP PRN (00:47)
[2019-09-05] MEDS ORDERED: D5% in Water 1,000 ML IVC PRN (00:47)
[2019-09-05 00:51] LABS: Basophils % 0.3 %; Eosinophils % 0.2 %; Hematocrit 31.3 % (35.3-44.9); Hemoglobin 9.9 g/dL (11.5-15.4); Immature Granulocytes % 0.3 % (0-4); Lymphocytes # 2.4 K/mcL (0.6-4.6); Lymphocytes % 20.8 %; Mean Corpuscular HGB Conc 31.6 g/dL (31.6-35.5); Mean Corpuscular Hemoglobin 23.9 pg (28.0-33.3); Mean Corpuscular Volume 75.4 fL (83.0-100.0); Monocytes % 8.8 %; Neutrophils # 8.1 K/mcL (1.6-8.9); Platelet Count 273 K/mcL (140-400); Red Blood Count 4.15 M/mcL (3.82-4.97); Red Cell Distribution Width 17.3 % (11.5-14.5); Segmented Neutrophils % 69.6 %; White Blood Count 11.7 K/mcL (4.3-11.1)
[2019-09-05 01:08] LABS: Alanine Aminotransferase 8 Units/L (7-52); Albumin 3.4 g/dL (3.5-5.7); Albumin/Globulin Ratio 0.9 (1.1-2.2); Alkaline Phosphatase 96 Units/L (34-104); Aspartate Amino Transferase 11 Units/L (13-39); BUN/Creatinine Ratio 16 (6-26); Bilirubin,Total 0.3 mg/dL (0.3-1.0); Blood Urea Nitrogen 11 mg/dL (6-20); Calcium 8.1 mg/dL (8.6-10.3); Carbon Dioxide 21 mEq/L (23-29); Chloride 104 mEq/L (98-107); Globulin 3.6 g/dL (2.4-3.5); Glucose 95 mg/dL (70-105); Osmolality,Calculated 277 (280-300); Potassium 3.1 mEq/L (3.5-5.1); Sodium 134 mEq/L (136-145); eGFR For African Americans > 60 (> 60); eGFR For Non-African Americans > 60 (> 60)
[2019-09-05] MEDS: 0.9 % Sodium Chloride 1,000 ML IVC SCH (02:20)
[2019-09-05] MEDS: *HR* Heparin 5,000 UNIT/ML VIAL SQ SCH ×3 (05:24→21:52)
[2019-09-05] MEDS: Insulin LISPRO 300 UNITS/3 ML VIAL SQ SCH ×3 (09:16→16:27)
[2019-09-05] MEDS: Fluticasone Propionate Nasal 50 MCG/SPRAY BOTTLE NS SCH (16:29)
[2019-09-05] MEDS: Ertapenem 1,000 MG in 0.9 % Sodium Chloride Mini Bag 100 ML IVPB SCH (21:51)
[2019-09-06] MEDS: *HR* Heparin 5,000 UNIT/ML VIAL SQ SCH ×3 (04:56→20:45)
[2019-09-06 06:35] LABS: Hematocrit 31.4 % (35.3-44.9); Hemoglobin 9.8 g/dL (11.5-15.4); Mean Corpuscular HGB Conc 31.2 g/dL (31.6-35.5); Mean Corpuscular Hemoglobin 23.7 pg (28.0-33.3); Mean Platelet Volume 11.5 fL (9.4-12.4); Platelet Count 241 K/mcL (140-400); Red Blood Count 4.13 M/mcL (3.82-4.97); Red Cell Distribution Width 17.8 % (11.5-14.5); White Blood Count 6.2 K/mcL (4.3-11.1)
[2019-09-06 06:48] LABS: BUN/Creatinine Ratio 22 (6-26); Blood Urea Nitrogen 14 mg/dL (6-20); Calcium 8.6 mg/dL (8.6-10.3); Carbon Dioxide 23 mEq/L (23-29); Chloride 108 mEq/L (98-107); Glucose 109 mg/dL (70-105); Osmolality,Calculated 291 (280-300); Potassium 3.6 mEq/L (3.5-5.1); Sodium 140 mEq/L (136-145); eGFR For African Americans > 60 (> 60); eGFR For Non-African Americans > 60 (> 60)
[2019-09-06] MEDS: Insulin LISPRO 300 UNITS/3 ML VIAL SQ SCH ×3 (07:55→16:06)
[2019-09-06] MEDS: Fluticasone Propionate Nasal 50 MCG/SPRAY BOTTLE NS SCH (07:59)
[2019-09-06] MEDS: Ertapenem 1,000 MG in 0.9 % Sodium Chloride Mini Bag 100 ML IVPB SCH (20:45)
[2019-09-07] MEDS: *HR* Heparin 5,000 UNIT/ML VIAL SQ SCH ×3 (05:28→20:53)
[2019-09-07 06:52] LABS: Hemoglobin 9.3 g/dL (11.5-15.4); Mean Corpuscular Hemoglobin 24.4 pg (28.0-33.3); Mean Corpuscular Volume 78.7 fL (83.0-100.0); Mean Platelet Volume 11.3 fL (9.4-12.4); Platelet Count 253 K/mcL (140-400); Red Blood Count 3.81 M/mcL (3.82-4.97); Red Cell Distribution Width 17.6 % (11.5-14.5); White Blood Count 6.7 K/mcL (4.3-11.1)
[2019-09-07 07:10] LABS: BUN/Creatinine Ratio 21 (6-26); Blood Urea Nitrogen 16 mg/dL (6-20); Calcium 8.5 mg/dL (8.6-10.3); Carbon Dioxide 24 mEq/L (23-29); Chloride 106 mEq/L (98-107); Glucose 100 mg/dL (70-105); Osmolality,Calculated 297 (280-300); Potassium 3.9 mEq/L (3.5-5.1); Sodium 143 mEq/L (136-145); eGFR For African Americans > 60 (> 60); eGFR For Non-African Americans > 60 (> 60)
[2019-09-07] MEDS: Insulin LISPRO 300 UNITS/3 ML VIAL SQ SCH ×3 (08:34→16:57)
[2019-09-07] MEDS: Fluticasone Propionate Nasal 50 MCG/SPRAY BOTTLE NS SCH (08:59)
[2019-09-07] MEDS ORDERED: Furosemide 20 MG/2 ML VIAL IVP ONE (20:21)
[2019-09-07] MEDS: Ertapenem 1,000 MG in 0.9 % Sodium Chloride Mini Bag 100 ML IVPB SCH (20:51)
[2019-09-08] MEDS: *HR* Heparin 5,000 UNIT/ML VIAL SQ SCH (06:05)
[2019-09-08] MEDS: Insulin LISPRO 300 UNITS/3 ML VIAL SQ SCH ×2 (08:58→13:50)
[2019-09-08] MEDS: Fluticasone Propionate Nasal 50 MCG/SPRAY BOTTLE NS SCH (09:06)
[2019-09-08 12:21] VITALS: BP 105/70
== END 2019-09-08 15:40 | disposition home health service (06) | DRG 698 ==
LOC: 3ANU 19:57 → EMEROOARM 19:57 → SUATTDRO 22:46 → 3ANU 09-05 00:14 → SUATTDRO 09-05 12:04 → 3ANU 09-06 09:25
PROVIDERS: ADMIT Family Medicine; ATTEND Student in an Organized Health Care Education/Training Program

== ENCOUNTER 2020-03-11 18:23 | Inpatient (IN) ==
[2020-03-11 18:57] LABS: Basophils # 0.1 K/mcL (0.0-0.2); Basophils % 0.6 %; Eosinophils # 0.3 K/mcL (0.0-0.6); Eosinophils % 2.6 %; Hematocrit 39.1 % (35.3-44.9); Hemoglobin 12.1 g/dL (11.5-15.4); Immature Granulocytes % 0.2 % (0-4); Lymphocytes % 20.8 %; Mean Corpuscular HGB Conc 30.9 g/dL (31.6-35.5); Mean Corpuscular Hemoglobin 25.1 pg (28.0-33.3); Mean Corpuscular Volume 81.1 fL (83.0-100.0); Mean Platelet Volume 10.6 fL (9.4-12.4); Monocytes # 0.7 K/mcL (0.0-1.3); Monocytes % 7.5 %; Neutrophils # 6.6 K/mcL (1.6-8.9); Platelet Count 353 K/mcL (140-400); Red Blood Count 4.82 M/mcL (3.82-4.97); Red Cell Distribution Width 16.8 % (11.5-14.5); Segmented Neutrophils % 68.3 %; White Blood Count 9.6 K/mcL (4.3-11.1)
[2020-03-11 19:08] LABS: INR 1.2; Prothrombin Time 13.1 Seconds (9.4-12.1)
[2020-03-11 19:11] LABS: Activated Partial Thrombo Time 32.8 Seconds (26.0-36.0)
[2020-03-11 19:18] LABS: BUN/Creatinine Ratio 21 (6-26); Blood Urea Nitrogen 16 mg/dL (6-20); Calcium 9.2 mg/dL (8.6-10.3); Carbon Dioxide 23 mEq/L (23-29); Chloride 103 mEq/L (98-107); Glucose 114 mg/dL (70-105); Osmolality,Calculated 288 (280-300); Potassium 3.6 mEq/L (3.5-5.1); Sodium 138 mEq/L (136-145); eGFR For African Americans > 60 (> 60); eGFR For Non-African Americans > 60 (> 60)
[2020-03-11 19:19] LABS: Troponin I < 0.03 ng/mL (< 0.04)
[2020-03-11] MEDS ORDERED: Isovue-370 500 ML BOTTLE IVP ONE (20:13)
[2020-03-11 20:18] LABS: Bilirubin,Urine Negative (Negative); Color,Urine Light-Yellow (Yellow); Glucose,Urine (UA) Normal (Normal); Ketones,Urine Negative (Negative)
[2020-03-11 20:19] LABS: Blood,Urine Small (Negative); Clarity,Urine Turbid (Clear); Leukocyte Esterase,Urine Large (Negative); Nitrite,Urine Positive (Negative); PH,Urine 7.5 pH Units (5.0-8.0); Protein,Urine Trace mg/dL (Neg-Trace); Specific Gravity,Urine 1.013 (1.010-1.025); Urobilinogen,Urine Normal (Normal)
[2020-03-11 20:23] LABS: RBC,Urine 0-3 per hpf (0-3); WBC,Urine TNTC per hpf (0-3)
[2020-03-11 20:24] LABS: Amorphous Sediment,Urine Few per hpf (None-Few); Bacteria,Urine Few per hpf (None-Few)
[2020-03-11] MEDS ORDERED: Naloxone 0.4 MG/ML INJ IVP PRN (21:30)
[2020-03-11] MEDS ORDERED: 0.9 % Sodium Chloride 1,000 ML IVC SCH (21:30)
[2020-03-12 01:09] LABS: Hematocrit 34.7 % (35.3-44.9); Hemoglobin 10.9 g/dL (11.5-15.4); Mean Corpuscular HGB Conc 31.4 g/dL (31.6-35.5); Mean Corpuscular Hemoglobin 25.6 pg (28.0-33.3); Mean Corpuscular Volume 81.5 fL (83.0-100.0); Mean Platelet Volume 10.8 fL (9.4-12.4); Platelet Count 290 K/mcL (140-400); Red Blood Count 4.26 M/mcL (3.82-4.97); Red Cell Distribution Width 16.7 % (11.5-14.5); White Blood Count 8.9 K/mcL (4.3-11.1)
[2020-03-12 01:23] LABS: Alanine Aminotransferase 9 Units/L (7-52); Albumin 3.7 g/dL (3.5-5.7); Alkaline Phosphatase 113 Units/L (34-104); Aspartate Amino Transferase 10 Units/L (13-39); BUN/Creatinine Ratio 22 (6-26); Bilirubin,Total 0.3 mg/dL (0.3-1.0); Blood Urea Nitrogen 15 mg/dL (6-20); Calcium 8.9 mg/dL (8.6-10.3); Carbon Dioxide 25 mEq/L (23-29); Chloride 104 mEq/L (98-107); Globulin 3.7 g/dL (2.4-3.5); Glucose 128 mg/dL (70-105); Osmolality,Calculated 284 (280-300); Potassium 3.4 mEq/L (3.5-5.1); Sodium 136 mEq/L (136-145); Total Protein 7.4 g/dL (6.4-8.9); eGFR For African Americans > 60 (> 60); eGFR For Non-African Americans > 60 (> 60)
[2020-03-12] MEDS: Piperacillin/Tazobactam 3.375 GM in 0.9 % Sodium Chloride Mini Bag 100 ML IVPB SCH ×4 (01:58→23:48)
[2020-03-12] MEDS ORDERED: Dextrose Gel 15 GM/37.5 ML TUBE PO PRN ×2 (02:06)
[2020-03-12] MEDS ORDERED: *HR* Dextrose 50 % in Water (Vial) 50 ML VIAL IVP PRN (02:06)
[2020-03-12] MEDS ORDERED: D5% in Water 1,000 ML IVC PRN (02:06)
[2020-03-12 02:34] LABS: INR 1.1
[2020-03-12 02:37] LABS: Activated Partial Thrombo Time 32.5 Seconds (26.0-36.0)
[2020-03-12] MEDS ORDERED: Gabapentin 100 MG CAPSULE PO PRN (02:57)
[2020-03-12] MEDS ORDERED: Ondansetron ODT 4 MG TAB.RAPDIS PO PRN (02:57)
[2020-03-12] MEDS ORDERED: *HR* HYDROcodone/Acet 5/325 mg TABLET PO PRN (02:57)
[2020-03-12] MEDS: *HR* Heparin 5,000 UNIT/ML VIAL SQ SCH ×3 (05:49→21:56)
[2020-03-12] MEDS: Insulin LISPRO 300 UNITS/3 ML VIAL SQ SCH ×3 (09:21→17:37)
[2020-03-12] MEDS: GuaiFENesin/Codeine Oral Soln 5 ML UDC PO PRN (21:56)
[2020-03-13 00:45] LABS: Basophils # 0.1 K/mcL (0.0-0.2); Basophils % 0.8 %; Eosinophils # 0.3 K/mcL (0.0-0.6); Eosinophils % 3.9 %; Hematocrit 35.2 % (35.3-44.9); Hemoglobin 10.8 g/dL (11.5-15.4); Immature Granulocytes % 0.2 % (0-4); Lymphocytes # 2.5 K/mcL (0.6-4.6); Lymphocytes % 29.3 %; Mean Corpuscular HGB Conc 30.7 g/dL (31.6-35.5); Mean Corpuscular Hemoglobin 25.5 pg (28.0-33.3); Mean Platelet Volume 11.6 fL (9.4-12.4); Monocytes # 0.7 K/mcL (0.0-1.3); Monocytes % 8.7 %; Neutrophils # 4.8 K/mcL (1.6-8.9); Platelet Count 280 K/mcL (140-400); Red Blood Count 4.24 M/mcL (3.82-4.97); Segmented Neutrophils % 57.1 %; White Blood Count 8.4 K/mcL (4.3-11.1)
[2020-03-13 00:54] LABS: BUN/Creatinine Ratio 26 (6-26); Blood Urea Nitrogen 19 mg/dL (6-20); Carbon Dioxide 23 mEq/L (23-29); Chloride 105 mEq/L (98-107); Glucose 123 mg/dL (70-105); Osmolality,Calculated 284 (280-300); Potassium 4.1 mEq/L (3.5-5.1); Sodium 135 mEq/L (136-145); eGFR For African Americans > 60 (> 60); eGFR For Non-African Americans > 60 (> 60)
[2020-03-13] MEDS: *HR* Heparin 5,000 UNIT/ML VIAL SQ SCH ×3 (06:00→22:32)
[2020-03-13] MEDS: Piperacillin/Tazobactam 3.375 GM in 0.9 % Sodium Chloride Mini Bag 100 ML IVPB SCH ×2 (10:10→17:49)
[2020-03-13] MEDS: Insulin LISPRO 300 UNITS/3 ML VIAL SQ SCH ×3 (10:10→17:35)
[2020-03-13] MEDS: GuaiFENesin/Codeine Oral Soln 5 ML UDC PO PRN (19:09)
[2020-03-14] MEDS: Piperacillin/Tazobactam 3.375 GM in 0.9 % Sodium Chloride Mini Bag 100 ML IVPB SCH ×2 (00:09→07:51)
[2020-03-14] MEDS: *HR* Heparin 5,000 UNIT/ML VIAL SQ SCH (06:32)
[2020-03-14 07:20] VITALS: BP 112/71
[2020-03-14] MEDS: Insulin LISPRO 300 UNITS/3 ML VIAL SQ SCH ×2 (07:50→11:38)
== END 2020-03-14 12:56 | disposition home health service (06) | DRG 690 ==
LOC: EMEROOARM 18:23 → 3ANU 18:23 → SUATTDRO 22:10 → 3ANU 23:13
PROVIDERS: ADMIT Internal Medicine; ATTEND Internal Medicine

== ENCOUNTER 2020-05-24 20:55 | Inpatient (IN) ==
[2020-05-24] MEDS ORDERED: Isovue-370 500 ML BOTTLE IVP ONE (21:39)
[2020-05-24 22:05] LABS: Amorphous Sediment,Urine Few per hpf (None-Few); Bacteria,Urine Few per hpf (None-Few); Bilirubin,Urine Negative (Negative); Blood,Urine Negative (Negative); Budding Yeast,Urine Few per hpf (None Seen); Clarity,Urine Ex.Turbid (Clear); Color,Urine Light-Orange (Yellow); Glucose,Urine (UA) Normal (Normal); Ketones,Urine Negative (Negative); Leukocyte Esterase,Urine Moderate (Negative); Mucus,Urine Few per lpf (None-Few); Nitrite,Urine Positive (Negative); PH,Urine 8.5 pH Units (5.0-8.0); Protein,Urine 70 mg/dL (Neg-Trace); Specific Gravity,Urine 1.022 (1.010-1.025); Triple Phosphate Crystal,Urine Present; Urobilinogen,Urine Normal (Normal); WBC,Urine 50-100 per hpf (0-3)
[2020-05-24 22:22] LABS: Basophils # 0.1 K/mcL (0.0-0.2); Basophils % 0.6 %; Eosinophils # 0.3 K/mcL (0.0-0.6); Hematocrit 37.6 % (35.3-44.9); Hemoglobin 11.7 g/dL (11.5-15.4); Immature Granulocytes % 0.2 % (0-4); Lymphocytes % 30.9 %; Mean Corpuscular HGB Conc 31.1 g/dL (31.6-35.5); Mean Corpuscular Hemoglobin 25.6 pg (28.0-33.3); Mean Corpuscular Volume 82.3 fL (83.0-100.0); Mean Platelet Volume 11.2 fL (9.4-12.4); Monocytes # 0.7 K/mcL (0.0-1.3); Neutrophils # 5.6 K/mcL (1.6-8.9); Platelet Count 322 K/mcL (140-400); Red Blood Count 4.57 M/mcL (3.82-4.97); Red Cell Distribution Width 15.8 % (11.5-14.5); Segmented Neutrophils % 58.3 %; White Blood Count 9.6 K/mcL (4.3-11.1)
[2020-05-24 22:37] LABS: Alanine Aminotransferase 15 Units/L (7-52); Albumin 4.1 g/dL (3.5-5.7); Albumin/Globulin Ratio 1.1 (1.1-2.2); Alkaline Phosphatase 112 Units/L (34-104); Aspartate Amino Transferase 13 Units/L (13-39); BUN/Creatinine Ratio 20 (6-26); Bilirubin,Direct 0.1 mg/dL (0.0-0.2); Bilirubin,Indirect 0.2 mg/dL (0.0-1.0); Bilirubin,Total 0.3 mg/dL (0.3-1.0); Blood Urea Nitrogen 14 mg/dL (6-20); Calcium 9.3 mg/dL (8.6-10.3); Carbon Dioxide 28 mEq/L (23-29); Chloride 104 mEq/L (98-107); Globulin 3.7 g/dL (2.4-3.5); Glucose 106 mg/dL (70-105); Lipase 54 Units/L (11-82); Osmolality,Calculated 291 (280-300); Potassium 3.4 mEq/L (3.5-5.1); Sodium 140 mEq/L (136-145); Total Protein 7.8 g/dL (6.4-8.9); eGFR For African Americans > 60 (> 60); eGFR For Non-African Americans > 60 (> 60)
[2020-05-24] MEDS ORDERED: cefTRIAXone 1,000 MG in 0.9 % Sodium Chloride Mini Bag 100 ML IVPB ONE (22:47)
[2020-05-25] MEDS ORDERED: Acetaminophen 325 MG TABLET PO PRN (01:53)
[2020-05-25] MEDS ORDERED: Ondansetron ODT 4 MG TAB.RAPDIS SL PRN (01:53)
[2020-05-25] MEDS ORDERED: Naloxone 0.4 MG/ML INJ IVP PRN (01:53)
[2020-05-25] MEDS ORDERED: Potassium Chloride Elixir 20 MEQ/15 ML UDC PO ONE (01:56)
[2020-05-25] MEDS ORDERED: D5% in Water 1,000 ML IVC PRN (02:08)
[2020-05-25] MEDS ORDERED: Dextrose Gel 15 GM/37.5 ML TUBE PO PRN ×2 (02:08)
[2020-05-25] MEDS ORDERED: *HR* Dextrose 50 % in Water (Vial) 50 ML VIAL IVP PRN (02:08)
[2020-05-25 02:28] LABS: Basophils # 0.1 K/mcL (0.0-0.2); Basophils % 0.6 %; Eosinophils # 0.3 K/mcL (0.0-0.6); Hematocrit 36.3 % (35.3-44.9); Hemoglobin 11.3 g/dL (11.5-15.4); Immature Granulocytes % 0.2 % (0-4); Lymphocytes # 3.2 K/mcL (0.6-4.6); Mean Corpuscular HGB Conc 31.1 g/dL (31.6-35.5); Mean Corpuscular Hemoglobin 25.5 pg (28.0-33.3); Mean Corpuscular Volume 81.9 fL (83.0-100.0); Mean Platelet Volume 10.9 fL (9.4-12.4); Monocytes # 0.8 K/mcL (0.0-1.3); Monocytes % 7.9 %; Neutrophils # 5.3 K/mcL (1.6-8.9); Platelet Count 306 K/mcL (140-400); Red Blood Count 4.43 M/mcL (3.82-4.97); Red Cell Distribution Width 15.8 % (11.5-14.5); Segmented Neutrophils % 55.3 %; White Blood Count 9.6 K/mcL (4.3-11.1)
[2020-05-25 02:48] LABS: BUN/Creatinine Ratio 25 (6-26); Blood Urea Nitrogen 16 mg/dL (6-20); Calcium 8.8 mg/dL (8.6-10.3); Carbon Dioxide 23 mEq/L (23-29); Chloride 107 mEq/L (98-107); Glucose 107 mg/dL (70-105); Osmolality,Calculated 290 (280-300); Potassium 3.4 mEq/L (3.5-5.1); Sodium 139 mEq/L (136-145); eGFR For African Americans > 60 (> 60); eGFR For Non-African Americans > 60 (> 60)
[2020-05-25] MEDS ORDERED: Gabapentin 100 MG CAPSULE PO PRN (03:52)
[2020-05-25 04:26] LABS: Estimated Average Glucose 131 mg/dl
[2020-05-25] MEDS: *HR* Heparin 5,000 UNIT/ML VIAL SQ SCH ×3 (05:06→23:23)
[2020-05-25] MEDS ORDERED: Insulin LISPRO 300 UNITS/3 ML VIAL SQ SCH (06:00)
[2020-05-25] MEDS: Bumetanide 1 MG TABLET PO SCH (08:31)
[2020-05-25] MEDS: Piperacillin/Tazobactam 3.375 GM in 0.9 % Sodium Chloride Mini Bag 100 ML IVPB SCH ×3 (08:31→23:22)
[2020-05-25] MEDS: Insulin LISPRO 300 UNITS/3 ML VIAL SQ SCH ×3 (08:32→16:37)
[2020-05-25] MEDS: Nystatin POWDER 30 GM BOTTLE TP SCH (19:52)
[2020-05-25] MEDS ORDERED: Nystatin POWDER 30 GM BOTTLE TP SCH (21:00)
[2020-05-26] MEDS: *HR* Heparin 5,000 UNIT/ML VIAL SQ SCH (06:20)
[2020-05-26 08:34] VITALS: BP 101/60
[2020-05-26] MEDS: Insulin LISPRO 300 UNITS/3 ML VIAL SQ SCH (08:44)
[2020-05-26] MEDS: Piperacillin/Tazobactam 3.375 GM in 0.9 % Sodium Chloride Mini Bag 100 ML IVPB SCH (08:48)
[2020-05-26] MEDS: Nystatin POWDER 30 GM BOTTLE TP SCH (08:48)
[2020-05-26] MEDS: Bumetanide 1 MG TABLET PO SCH (08:48)
[2020-05-26 09:45] LABS: BUN/Creatinine Ratio 26 (6-26); Blood Urea Nitrogen 19 mg/dL (6-20); Calcium 9.4 mg/dL (8.6-10.3); Carbon Dioxide 25 mEq/L (23-29); Chloride 104 mEq/L (98-107); Glucose 159 mg/dL (70-105); Magnesium 1.9 mg/dL (1.6-2.6); Osmolality,Calculated 290 (280-300); Phosphorous 3.9 mg/dL (2.7-4.5); Potassium 4.1 mEq/L (3.5-5.1); Sodium 137 mEq/L (136-145); eGFR For African Americans > 60 (> 60); eGFR For Non-African Americans > 60 (> 60)
== END 2020-05-26 13:13 | disposition home health service (06) | DRG 699 ==
LOC: 3BNU 20:55 → EMEROOARM 20:55 → SUATTDRO 05-25 01:13 → 3BNU 05-25 01:29
PROVIDERS: ADMIT Family Medicine; ATTEND Internal Medicine

== ENCOUNTER 2020-12-30 14:39 | Inpatient (IN) ==
[2020-12-30 16:53] LABS: Basophils % 0.4 %; Hematocrit 42.5 % (35.3-44.9); Hemoglobin 13.6 g/dL (11.5-15.4); Immature Granulocytes % 0.4 % (0-4); Lymphocytes # 1.5 K/mcL (0.6-4.6); Lymphocytes % 30.3 %; Mean Corpuscular Hemoglobin 25.5 pg (28.0-33.3); Mean Corpuscular Volume 79.7 fL (83.0-100.0); Mean Platelet Volume 10.8 fL (9.4-12.4); Monocytes # 0.4 K/mcL (0.0-1.3); Monocytes % 8.4 %; Platelet Count 202 K/mcL (140-400); Red Blood Count 5.33 M/mcL (3.82-4.97); Segmented Neutrophils % 60.5 %
[2020-12-30 17:01] LABS: Amorphous Sediment,Urine Many per hpf (None-Few); Bacteria,Urine Few per hpf (None-Few); Bilirubin,Urine Negative (Negative); Blood,Urine Negative (Negative); Clarity,Urine Ex.Turbid (Clear); Color,Urine Yellow (Yellow); Glucose,Urine (UA) Normal (Normal); Ketones,Urine Negative (Negative); Leukocyte Esterase,Urine Moderate (Negative); Mucus,Urine Few per lpf (None-Few); Nitrite,Urine Positive (Negative); PH,Urine 8.5 pH Units (5.0-8.0); Protein,Urine 100 mg/dL (Neg-Trace); WBC,Urine 15-30 per hpf (0-3)
[2020-12-30 17:03] LABS: BUN/Creatinine Ratio 16 (6-26); Blood Urea Nitrogen 13 mg/dL (6-20); Calcium 9.3 mg/dL (8.6-10.3); Carbon Dioxide 25 mEq/L (23-29); Chloride 101 mEq/L (98-107); Glucose 102 mg/dL (70-105); Magnesium 1.9 mg/dL (1.6-2.6); Osmolality,Calculated 282 (280-300); Sodium 136 mEq/L (136-145); Troponin I < 0.03 ng/mL (< 0.04); eGFR For African Americans > 60 (> 60); eGFR For Non-African Americans > 60 (> 60)
[2020-12-30] MEDS ORDERED: Piperacillin/Tazobactam 3.375 GM in Water for inj. (sterile) 20 ML IVP ONE (17:42)
[2020-12-30] MEDS ORDERED: Melatonin 3 MG TABLET PO PRN (18:01)
[2020-12-30] MEDS ORDERED: Ondansetron 4 MG/2 ML VIAL IVP PRN (18:01)
[2020-12-30] MEDS ORDERED: Gabapentin 100 MG CAPSULE PO PRN (18:14)
[2020-12-30] MEDS ORDERED: Ringers Solution, Lactated 1,000 ML IVC SCH (18:15)
[2020-12-30] MEDS: Ertapenem 1,000 MG in 0.9 % Sodium Chloride Mini Bag 100 ML IVPB SCH (18:36)
[2020-12-30] MEDS: GuaiFENesin Liq 200 MG/10 ML UDC PO PRN (21:02)
[2020-12-31] MEDS: Acetaminophen 325 MG TABLET PO PRN ×2 (00:13→18:02)
[2020-12-31 08:06] LABS: Hematocrit 39.3 % (35.3-44.9); Hemoglobin 12.7 g/dL (11.5-15.4); Mean Corpuscular HGB Conc 32.3 g/dL (31.6-35.5); Mean Corpuscular Hemoglobin 26.5 pg (28.0-33.3); Mean Corpuscular Volume 81.9 fL (83.0-100.0); Mean Platelet Volume 11.3 fL (9.4-12.4); Platelet Count 170 K/mcL (140-400); Red Cell Distribution Width 15.2 % (11.5-14.5); White Blood Count 3.4 K/mcL (4.3-11.1)
[2020-12-31 08:30] LABS: BUN/Creatinine Ratio 17 (6-26); Blood Urea Nitrogen 13 mg/dL (6-20); Calcium 8.9 mg/dL (8.6-10.3); Carbon Dioxide 23 mEq/L (23-29); Chloride 107 mEq/L (98-107); Glucose 101 mg/dL (70-105); Osmolality,Calculated 288 (280-300); Potassium 3.7 mEq/L (3.5-5.1); Sodium 139 mEq/L (136-145); eGFR For African Americans > 60 (> 60); eGFR For Non-African Americans > 60 (> 60)
[2020-12-31] MEDS: Ertapenem 1,000 MG in 0.9 % Sodium Chloride Mini Bag 100 ML IVPB SCH (08:55)
[2020-12-31] MEDS ORDERED: Bumetanide 1 MG TABLET PO SCH (09:00)
[2020-12-31] MEDS: GuaiFENesin Liq 200 MG/10 ML UDC PO PRN (10:08)
[2021-01-01 05:55] LABS: Hematocrit 37.2 % (35.3-44.9); Hemoglobin 11.8 g/dL (11.5-15.4); Mean Corpuscular HGB Conc 31.7 g/dL (31.6-35.5); Mean Corpuscular Hemoglobin 25.5 pg (28.0-33.3); Mean Corpuscular Volume 80.5 fL (83.0-100.0); Mean Platelet Volume 11.6 fL (9.4-12.4); Platelet Count 167 K/mcL (140-400); Red Blood Count 4.62 M/mcL (3.82-4.97); Red Cell Distribution Width 15.4 % (11.5-14.5); White Blood Count 3.7 K/mcL (4.3-11.1)
[2021-01-01 06:17] LABS: BUN/Creatinine Ratio 19 (6-26); Blood Urea Nitrogen 13 mg/dL (6-20); Calcium 8.9 mg/dL (8.6-10.3); Carbon Dioxide 21 mEq/L (23-29); Chloride 108 mEq/L (98-107); Glucose 101 mg/dL (70-105); Osmolality,Calculated 284 (280-300); Potassium 3.5 mEq/L (3.5-5.1); Sodium 137 mEq/L (136-145); eGFR For African Americans > 60 (> 60); eGFR For Non-African Americans > 60 (> 60)
[2021-01-01] MEDS: Ertapenem 1,000 MG in 0.9 % Sodium Chloride Mini Bag 100 ML IVPB SCH (08:06)
[2021-01-01] MEDS: GuaiFENesin Liq 200 MG/10 ML UDC PO PRN (20:34)
[2021-01-01] MEDS: Acetaminophen 325 MG TABLET PO PRN (23:08)
[2021-01-02 05:49] LABS: Hematocrit 38.2 % (35.3-44.9); Mean Corpuscular HGB Conc 31.4 g/dL (31.6-35.5); Mean Corpuscular Hemoglobin 25.9 pg (28.0-33.3); Mean Corpuscular Volume 82.5 fL (83.0-100.0); Mean Platelet Volume 11.6 fL (9.4-12.4); Platelet Count 169 K/mcL (140-400); Red Blood Count 4.63 M/mcL (3.82-4.97); Red Cell Distribution Width 15.5 % (11.5-14.5); White Blood Count 4.3 K/mcL (4.3-11.1)
[2021-01-02 06:10] LABS: BUN/Creatinine Ratio 18 (6-26); Blood Urea Nitrogen 13 mg/dL (6-20); Calcium 8.8 mg/dL (8.6-10.3); Carbon Dioxide 22 mEq/L (23-29); Chloride 108 mEq/L (98-107); Glucose 92 mg/dL (70-105); Osmolality,Calculated 288 (280-300); Potassium 3.3 mEq/L (3.5-5.1); Sodium 139 mEq/L (136-145); eGFR For African Americans > 60 (> 60); eGFR For Non-African Americans > 60 (> 60)
[2021-01-02] MEDS: Ertapenem 1,000 MG in 0.9 % Sodium Chloride Mini Bag 100 ML IVPB SCH (08:26)
[2021-01-02 11:00] VITALS: BP 124/80
[2021-01-02] MEDS ORDERED: Sulfamethoxazole/Trimeth DS 1 EACH TABLET PO SCH (13:15)
== END 2021-01-02 16:13 | disposition home or self-care (01) | DRG 698 ==
LOC: 2ANU 14:39 → EMEROOARM 14:39 → SUATTDRO 18:38 → 2ANU 19:45 → 3BNU 12-31 01:52
PROVIDERS: ADMIT Internal Medicine; ATTEND Family Medicine

== ENCOUNTER 2022-03-11 12:00 | Inpatient (IN) ==
[2022-03-11 14:11] LABS: Basophils # 0.1 K/mcL (0.0-0.2); Basophils % 0.2 %; Hematocrit 42.6 % (35.3-44.9); Hemoglobin 13.6 g/dL (11.5-15.4); Lymphocytes # 1.1 K/mcL (0.6-4.6); Lymphocytes % 5.3 %; Mean Corpuscular HGB Conc 31.9 g/dL (31.6-35.5); Mean Corpuscular Hemoglobin 26.9 pg (28.0-33.3); Mean Corpuscular Volume 84.4 fL (83.0-100.0); Mean Platelet Volume 11.1 fL (9.4-12.4); Monocytes # 1.6 K/mcL (0.0-1.3); Monocytes % 7.7 %; Neutrophils # 18.4 K/mcL (1.6-8.9); Platelet Count 272 K/mcL (140-400); Red Blood Count 5.05 M/mcL (3.82-4.97); Red Cell Distribution Width 14.7 % (11.5-14.5); Segmented Neutrophils % 85.8 %; White Blood Count 21.4 K/mcL (4.3-11.1)
[2022-03-11 14:38] LABS: Calcium 9.3 mg/dL (8.6-10.3)
[2022-03-11] MEDS ORDERED: 0.9 % Sodium Chloride 1,000 ML IVC ONE (17:59)
[2022-03-11] MEDS ORDERED: Meropenem 1,000 MG in Water for inj. (sterile) 20 ML IVP STA (18:00)
[2022-03-11 18:14] LABS: Bilirubin,Urine Negative (Negative); Blood,Urine Large (Negative); Clarity,Urine Turbid (Clear); Color,Urine Yellow (Yellow); Glucose,Urine (UA) Normal (Normal); Ketones,Urine Negative (Negative); Leukocyte Esterase,Urine Large (Negative); Mucus,Urine Few per lpf (None-Few); Nitrite,Urine Positive (Negative); Protein,Urine >=300 mg/dL (Neg-Trace); RBC,Urine 15-30 per hpf (0-3); Renal Epithelial Cells,Urine Few per hpf (None-Few); Specific Gravity,Urine 1.016 (1.010-1.025); Squamous Epithelial Cell,Urine Few per hpf (None-Few); Urobilinogen,Urine Normal (Normal); WBC,Urine 50-100 per hpf (0-3)
[2022-03-11] MEDS ORDERED: Naloxone 0.4 MG/ML INJ IVP PRN (19:50)
[2022-03-11] MEDS ORDERED: Potassium Chloride Elixir 20 MEQ/15 ML UDC PO ONE (20:14)
[2022-03-11] MEDS ORDERED: Ringers Solution, Lactated 1,000 ML IVC SCH (20:30)
[2022-03-11] MEDS ORDERED: Dextrose Gel 15 GM/37.5 ML TUBE PO PRN ×2 (22:31)
[2022-03-11] MEDS ORDERED: *HR* Dextrose 50 % in Water (Syg) 50 ML SYRINGE IVP PRN (22:31)
[2022-03-11] MEDS ORDERED: D5% in Water 1,000 ML IVC PRN (22:31)
[2022-03-12] MEDS ORDERED: Meropenem 1,000 MG in Water for inj. (sterile) 20 ML IVP SCH (02:00)
[2022-03-12 05:08] LABS: Basophils # 0.1 K/mcL (0.0-0.2); Basophils % 0.4 %; Eosinophils # 0.1 K/mcL (0.0-0.6); Eosinophils % 0.4 %; Hematocrit 39.1 % (35.3-44.9); Hemoglobin 12.1 g/dL (11.5-15.4); Immature Granulocytes % 0.6 % (0-4); Lymphocytes # 1.8 K/mcL (0.6-4.6); Lymphocytes % 11.5 %; Mean Corpuscular HGB Conc 30.9 g/dL (31.6-35.5); Mean Corpuscular Hemoglobin 26.8 pg (28.0-33.3); Mean Corpuscular Volume 86.5 fL (83.0-100.0); Mean Platelet Volume 11.4 fL (9.4-12.4); Monocytes # 1.1 K/mcL (0.0-1.3); Neutrophils # 12.6 K/mcL (1.6-8.9); Platelet Count 185 K/mcL (140-400); Red Blood Count 4.52 M/mcL (3.82-4.97); Red Cell Distribution Width 15.1 % (11.5-14.5); Segmented Neutrophils % 80.1 %; White Blood Count 15.8 K/mcL (4.3-11.1)
[2022-03-12 05:24] LABS: Alanine Aminotransferase 14 Units/L (7-52); Albumin 3.4 g/dL (3.5-5.7); Albumin/Globulin Ratio 0.9 (1.1-2.2); Alkaline Phosphatase 77 Units/L (34-104); Aspartate Amino Transferase 16 Units/L (13-39); BUN/Creatinine Ratio 13 (6-26); Bilirubin,Total 0.7 mg/dL (0.3-1.0); Blood Urea Nitrogen 14 mg/dL (6-20); Calcium 8.6 mg/dL (8.6-10.3); Carbon Dioxide 22 mEq/L (23-29); Chloride 104 mEq/L (98-107); Globulin 3.6 g/dL (2.4-3.5); Glucose 97 mg/dL (70-105); Magnesium 1.7 mg/dL (1.6-2.6); Osmolality,Calculated 280 (280-300); Phosphorous 2.4 mg/dL (2.7-4.5); Potassium 3.6 mEq/L (3.5-5.1); Sodium 135 mEq/L (136-145); eGFR For African Americans > 60 (> 60); eGFR For Non-African Americans 52 (> 60)
[2022-03-12] MEDS: *HR* Enoxaparin 40 MG/0.4 ML SYRINGE SQ SCH (05:55)
[2022-03-12] MEDS ORDERED: 0.9 % Sodium Chloride 1,000 ML IVC SCH (08:00)
[2022-03-12] MEDS: Insulin LISPRO 300 UNITS/3 ML VIAL SUBQ SCH ×4 (08:09→21:00)
[2022-03-12] MEDS: Ertapenem 1,000 MG in 0.9 % Sodium Chloride Mini Bag 100 ML IVPB SCH (08:34)
[2022-03-12 09:47] LABS: CTX-M ESBL Gene DETECTED (Not Detect); IMP Carbapenem-Resist Gene Not Detected (Not Detect)
[2022-03-12 09:48] LABS: A.calcoaceticus-baumannii cplx Not Detected (Not Detect); Bacteroides fragilis by PCR Not Detected (Not Detect); Candida albicans by PCR Not Detected (Not Detect); Candida auris by PCR Not Detected (Not Detect); Candida glabrata by PCR Not Detected (Not Detect); Candida krusei by PCR Not Detected (Not Detect); Candida parapsilosis by PCR Not Detected (Not Detect); Candida tropicalis by PCR Not Detected (Not Detect); Crypto. neoformans/gattii PCR Not Detected (Not Detect); Enterobacter cloacae Cmplx PCR Not Detected (Not Detect); Enterococcus faecalis by PCR Not Detected (Not Detect); Enterococcus faecium by PCR Not Detected (Not Detect); Escherichia coli by PCR DETECTED (Not Detect); Klebs. pneumoniae group by PCR Not Detected (Not Detect); Klebsiella aerogenes by PCR Not Detected (Not Detect); Klebsiella oxytoca by PCR Not Detected (Not Detect); NDM Carbapenem-Resist Gene Not Detected (Not Detect); OXA-48-like Carbap-Resist Gene Not Detected (Not Detect); Proteus by PCR Not Detected (Not Detect); Pseudomonas aeruginosa by PCR Not Detected (Not Detect); Salmonella species by PCR Not Detected (Not Detect); Serratia marcescens by PCR Not Detected (Not Detect); Staph epidermidis by PCR Not Detected (Not Detect); Staph lugdunensis by PCR Not Detected (Not Detect); Staphylococcus aureus by PCR Not Detected (Not Detect); Staphylococcus by PCR Not Detected (Not Detect); Stenotrophomonas maltophilia Not Detected (Not Detect); Streptococcus agalactiae(B)PCR Not Detected (Not Detect); Streptococcus by PCR Not Detected (Not Detect); Streptococcus pneumoniae PCR Not Detected (Not Detect); Streptococcus pyogenes (A) PCR Not Detected (Not Detect); VIM Carbapenem-Resist Gene Not Detected (Not Detect); blaKPC Carbapenem-Resist Gene Not Detected (Not Detect)
[2022-03-12] MEDS: Ondansetron ODT 4 MG TAB.RAPDIS SL PRN (15:22)
[2022-03-12] MEDS ORDERED: Albuterol 2.5 MG/3 ML NEBULIZER IH PRN (16:10)
[2022-03-12] MEDS ORDERED: Ibuprofen 600 MG TABLET PO ONE (21:03)
[2022-03-13 05:36] LABS: Basophils # 0.1 K/mcL (0.0-0.2); Basophils % 0.7 %; Eosinophils # 0.1 K/mcL (0.0-0.6); Eosinophils % 0.8 %; Hematocrit 33.6 % (35.3-44.9); Hemoglobin 10.6 g/dL (11.5-15.4); Immature Granulocytes % 0.6 % (0-4); Lymphocytes # 1.3 K/mcL (0.6-4.6); Lymphocytes % 13.9 %; Mean Corpuscular HGB Conc 31.5 g/dL (31.6-35.5); Mean Corpuscular Hemoglobin 27.5 pg (28.0-33.3); Mean Platelet Volume 11.5 fL (9.4-12.4); Monocytes # 0.8 K/mcL (0.0-1.3); Neutrophils # 6.8 K/mcL (1.6-8.9); Platelet Count 155 K/mcL (140-400); Red Blood Count 3.86 M/mcL (3.82-4.97); Red Cell Distribution Width 15.3 % (11.5-14.5); White Blood Count 9.1 K/mcL (4.3-11.1)
[2022-03-13] MEDS: *HR* Enoxaparin 40 MG/0.4 ML SYRINGE SQ SCH (05:44)
[2022-03-13 06:22] LABS: BUN/Creatinine Ratio 16 (6-26); Blood Urea Nitrogen 14 mg/dL (6-20); Calcium 8.6 mg/dL (8.6-10.3); Carbon Dioxide 19 mEq/L (23-29); Chloride 106 mEq/L (98-107); Glucose 89 mg/dL (70-105); Magnesium 1.9 mg/dL (1.6-2.6); Osmolality,Calculated 278 (280-300); Phosphorous 2.4 mg/dL (2.7-4.5); Potassium 3.5 mEq/L (3.5-5.1); Sodium 134 mEq/L (136-145); eGFR For African Americans > 60 (> 60); eGFR For Non-African Americans > 60 (> 60)
[2022-03-13] MEDS: Insulin LISPRO 300 UNITS/3 ML VIAL SUBQ SCH ×4 (07:29→22:17)
[2022-03-13] MEDS: Ertapenem 1,000 MG in 0.9 % Sodium Chloride Mini Bag 100 ML IVPB SCH (08:52)
[2022-03-13] MEDS: Ondansetron ODT 4 MG TAB.RAPDIS SL PRN (22:25)
[2022-03-13] MEDS: Melatonin 3 MG TABLET PO PRN (22:26)
[2022-03-14 03:21] LABS: Basophils % 0.5 %; Eosinophils # 0.2 K/mcL (0.0-0.6); Eosinophils % 2.8 %; Hematocrit 31.9 % (35.3-44.9); Hemoglobin 10.3 g/dL (11.5-15.4); Immature Granulocytes % 0.5 % (0-4); Lymphocytes # 1.3 K/mcL (0.6-4.6); Lymphocytes % 19.9 %; Mean Corpuscular HGB Conc 32.3 g/dL (31.6-35.5); Mean Corpuscular Hemoglobin 27.2 pg (28.0-33.3); Mean Corpuscular Volume 84.2 fL (83.0-100.0); Mean Platelet Volume 11.7 fL (9.4-12.4); Monocytes # 0.6 K/mcL (0.0-1.3); Monocytes % 9.7 %; Neutrophils # 4.2 K/mcL (1.6-8.9); Platelet Count 161 K/mcL (140-400); Red Blood Count 3.79 M/mcL (3.82-4.97); Red Cell Distribution Width 15.1 % (11.5-14.5); Segmented Neutrophils % 66.6 %; White Blood Count 6.4 K/mcL (4.3-11.1)
[2022-03-14 03:37] LABS: BUN/Creatinine Ratio 22 (6-26); Blood Urea Nitrogen 18 mg/dL (6-20); Calcium 8.8 mg/dL (8.6-10.3); Carbon Dioxide 23 mEq/L (23-29); Chloride 106 mEq/L (98-107); Glucose 104 mg/dL (70-105); Magnesium 1.8 mg/dL (1.6-2.6); Osmolality,Calculated 284 (280-300); Phosphorous 2.6 mg/dL (2.7-4.5); Potassium 4.1 mEq/L (3.5-5.1); Sodium 136 mEq/L (136-145); eGFR For African Americans > 60 (> 60); eGFR For Non-African Americans > 60 (> 60)
[2022-03-14] MEDS: *HR* Enoxaparin 40 MG/0.4 ML SYRINGE SQ SCH (04:56)
[2022-03-14] MEDS: Insulin LISPRO 300 UNITS/3 ML VIAL SUBQ SCH ×4 (08:38→20:33)
[2022-03-14] MEDS: Ertapenem 1,000 MG in 0.9 % Sodium Chloride Mini Bag 100 ML IVPB SCH (08:46)
[2022-03-14] MEDS: Bumetanide 1 MG TABLET PO SCH (12:01)
[2022-03-15] MEDS: Melatonin 3 MG TABLET PO PRN (01:28)
[2022-03-15] MEDS: *HR* Enoxaparin 40 MG/0.4 ML SYRINGE SQ SCH (05:48)
[2022-03-15 06:54] VITALS: BP 92/57; PULSE 71; TEMP 97.4; O2SAT 96
[2022-03-15] MEDS: Insulin LISPRO 300 UNITS/3 ML VIAL SUBQ SCH (09:03)
[2022-03-15] MEDS: Bumetanide 1 MG TABLET PO SCH (09:12)
[2022-03-15] MEDS: Ertapenem 1,000 MG in 0.9 % Sodium Chloride Mini Bag 100 ML IVPB SCH (09:12)
[2022-03-16 09:10] LABS: A.calcoaceticus-baumannii cplx Not Detected (Not Detect); Bacteroides fragilis by PCR Not Detected (Not Detect); Candida albicans by PCR Not Detected (Not Detect); Candida auris by PCR Not Detected (Not Detect); Candida glabrata by PCR Not Detected (Not Detect); Candida krusei by PCR Not Detected (Not Detect); Candida parapsilosis by PCR Not Detected (Not Detect); Candida tropicalis by PCR Not Detected (Not Detect); Crypto. neoformans/gattii PCR Not Detected (Not Detect); Enterobacter cloacae Cmplx PCR Not Detected (Not Detect); Enterobacterales by PCR Not Detected (Not Detect); Enterococcus faecalis by PCR Not Detected (Not Detect); Enterococcus faecium by PCR Not Detected (Not Detect); Escherichia coli by PCR Not Detected (Not Detect); Klebs. pneumoniae group by PCR Not Detected (Not Detect); Klebsiella aerogenes by PCR Not Detected (Not Detect); Klebsiella oxytoca by PCR Not Detected (Not Detect); Proteus by PCR Not Detected (Not Detect); Pseudomonas aeruginosa by PCR Not Detected (Not Detect); Salmonella species by PCR Not Detected (Not Detect); Serratia marcescens by PCR Not Detected (Not Detect); Staph epidermidis by PCR Not Detected (Not Detect); Staph lugdunensis by PCR Not Detected (Not Detect); Staphylococcus aureus by PCR Not Detected (Not Detect); Staphylococcus by PCR DETECTED (Not Detect); Stenotrophomonas maltophilia Not Detected (Not Detect); Streptococcus agalactiae(B)PCR Not Detected (Not Detect); Streptococcus by PCR Not Detected (Not Detect); Streptococcus pneumoniae PCR Not Detected (Not Detect); Streptococcus pyogenes (A) PCR Not Detected (Not Detect)
== END 2022-03-15 12:00 | disposition home health service (06) | DRG 698 ==
LOC: EMEROOARM 12:00 → 3ANU 12:00 → SUATTDRO 19:49 → 3ANU 20:25 → 3NENU 03-13 01:52
PROVIDERS: ADMIT Internal Medicine; ATTEND Internal Medicine